=== PATIENT | female | born 1940 | race Caucasian/White ===

== ENCOUNTER 2024-01-09 17:09 | Emergency (ER) | payer MEDICARE, SELFPAY ==
--- NOTE | 2024-01-09 17:14 | ED_ITS ---
HPI - General Adult General Time Seen by Provider: 17:15 Date Seen: 01/09/24 Chief complaint: Cough Stated complaint: chest congestion, cough Time Seen by Provider: 01/09/24 17:14 Source: patient, RN notes reviewed and old records reviewed Mode of arrival: ambulatory Limitations: no limitations History of Present Illness HPI narrative: 83-year-old female with history of high blood pressure presents with cough and congestion. Patient notes she was recently on amoxicillin for sinusitis, and overnight has developed increased cough and some pain when she takes big breath. No shortness of breath. Cough is productive. No lower extremity swelling, no orthopnea. No nausea vomiting, some chills and some diarrhea. Not currently taking anything for symptoms. Related Data Home Medications ?Medication ?Instructions ?Recorded ?Confirmed atorvastatin 40 mg tablet 40 mg PO DAILY 02/15/23 01/09/24 losartan 25 mg tablet 12.5 mg PO DAILY 02/15/23 01/09/24 omeprazole 20 mg capsule,delayed 20 mg PO DAILY 12/17/23 01/09/24 release Previous Rx's ?Medication ?Instructions ?Recorded azithromycin 250 mg tablet 250 mg PO DAILY 4 days #4 tabs 01/02/24 benzonatate 100 mg capsule 100 mg PO TID PRN cough #10 caps 01/09/24 cefpodoxime 200 mg tablet 200 mg PO BID #10 tabs 01/09/24 Allergies Allergy/AdvReac Type Severity Reaction Status Date / Time amoxicillin [From Augmentin] Allergy Unknown Verified 12/17/23 14:25 clavulanic acid Allergy Unknown Verified 12/17/23 14:25 [From Augmentin] Sulfa (Sulfonamide Allergy Unknown Verified 12/17/23 14:25 Antibiotics) [facility] Social History Smoking Status: Never smoker Non-prescribed substance use: denies use Exam Narrative: Exam Narrative: General: Well-developed and well-nourished, no acute distress Head: Atraumatic and normocephalic Eyes: Pupils are equal reactive, extraocular motions intact, conjunctiva clear ENT: External nose and ears are normal, posterior pharynx without erythema or e xudate Neck: No midline cervical tenderness, full spontaneous range of motion the neck, trachea midline, no adenopathy Heart: Regular rate and rhythm no murmurs or thrills Lungs: Bibasilar crackles worse on the left Abdomen: Soft, nontender, nondistended with active bowel sounds Musculoskeletal: No tenderness, deformity, or edema Neurologic: Awake, alert, and oriented x3, no gross focal neurologic deficits, cranial nerves intact as tested Psych: Mood and affect are appropriate Skin: No rashes Const: Vital Signs, click to edit/add: Vital Signs - 24 hr 01/09/24 17:15 Temperature 98 F Pulse Rate [Pulse Oximeter] 90 Respiratory Rate 18 Blood Pressure [Ri ght Upper Arm] 129/76 Pulse Oximetry 95 Oxygen Delivery Me thod Room Air Course Course ED Course: Reviewed prior vascular surgery note from November 23 which was follow-up for endovascular repair of aortic aneurysm on 09/23/2023, was doing well at that time with no further recommendations other than follow-up in 1 year. Patient presents today with cough and congestion, recently on amoxicillin for some sinus congestion. On exam here, patient is finally stable, no acute distress, able to move about the room without difficulty. She does have some mild bibasilar crackles worse on the left. Suspect this could be infectious, however cannot exclude pulmonary edema. Labs and chest x-ray ordered. Will defer advanced hyun ging including CT scan for now. Reevaluation(s) Time of Reevaluation #1: 17:52 Reevaluation #1: Chest x-ray independently interpreted by me demonstrates some streaky Time of Reevaluation #2: 18:18 Reevaluation #2: Labs ordered and independently interpreted by me with leukocytosis, basic panel is reassuring. Time of Reevaluation #3: 18:42 Reevaluation #3: Reviewed radiology interpretation of x-ray which demonstrates some reticular opacities bilaterally consistent with interstitial edema or atypical pneumonia. The patient's clinical presentation is more consistent with atypical pneumonia, however she does have a leukocytosis which may be stress demargination but given x-ray findings and clinical exam, will be started on Omnicef and doxycycline for community-acquired pneumonia. Vital Signs Vital signs: Initial Vital Signs Temperature 98 F 01/09/24 17:15 Temperature Source Temporal Artery Scan 01/09/24 17:15 Pulse Rate 90 01/09/24 17:15 Respiratory Rate 18 01/09/24 17:15 Blood Pressure 129/76 01/09/24 17:15 Blood Pressure Mean 93 01/09/24 17:15 Blood Pressure Position Sitting 01/09/24 17:15 Pulse Oximetry 95 01/09/24 17:15 Oxygen Delivery Method Room Air 01/09/24 17:15 Vital Signs Temperature 98 F 01/09/24 17:15 Pulse Rate 90 01/09/24 17:15 Respiratory Rate 18 01/09/24 17:15 Blood Pressure 129/76 01/09/24 17:15 Pulse Oximetry 95 01/09/24 17:15 Oxygen Delivery Method Room Air 01/09/24 17:15 Temperature 98 F 01/09/24 17:15 Pulse Rate 90 01/09/24 17:15 Respiratory Rate 18 01/09/24 17:15 Blood Pressure 129/76 01/09/24 17:15 Pulse Oximetry 95 01/09/24 17:15 Oxygen Delivery Method Room Air 01/09/24 17:15 Medical Decision Making Lab Data Labs: Lab Results 01/09/24 01/09/24 Range/Units 17:50 17:55 WBC 13.85 H (4.50-11.00) K/uL RBC 3.95 L (4.00-5.20) m/uL Hgb 11.7 L (12.0-16.0) gm/dL Hct 36.1 (33.0-51.0) % MCV 91 (80-100) fL MCH 30 (26-34) pg MCHC 32 (32-36) gm/dL RDW Coeff of Lydia 14.5 (11.5-15.5) % Plt Count 226 (140-440) K/uL Neut % (Auto) 77.3 H (42.0-72.0) % Lymph % (Auto) 11.5 L (20-44) % Wilkes % (Auto) 10.0 (0.0-11.0) % Eos % (Auto) 0.6 (0.0-7.0) % Baso % (Auto) 0.4 (0.0-3.0) % Neut # (Auto) 10.70 H (1.7-7.0) K/uL Lymph # (Auto) 1.60 (0.90-2.90) K/uL Wilkes # (Auto) 1.40 H (0.00-0.90) K/UL Eos # (Auto) 0.10 (0.00-0.50) K/uL Baso # (Auto) 0.10 (0.00-0.30) K/uL Abs Immat Gran (auto) 0.00 (0.00-0.30) K/uL Imm/Tot Granulo (auto) 0.2 % Sodium 134 L (135-149) mmol/L Potassium 3.9 (3.6-5.1) mmol/L Chloride 102 (96-114) mmol/L Carbon Dioxide 23 (20-32) mmol/L Anion Gap 9 (7-15) mEq/L BUN 13 (7-30) mg/dL Creatinine 0.7 (0.5-1.5) mg/dL Estimated Creat Clear 30.62 Estimated GFR 86 ml/min Glucose 116 H (60-115) mg/dL Calcium 9.2 (8.4-10.6) mg/dL NT-Pro-B Natriuret Pep 201 pg/mL SARS-CoV-2 (PCR) Negative SARS-CoV-2 (Negative) Influenza Type A (PCR) Negative PCR FLU A (Negative) Influenza Type B (PCR) Negative PCR FLU B (Negative) RSV (PCR) Negative PCR RSV (Negative) Discharge Plan Discharge Clinical Impression: Atypical pneumonia Patient Disposition: Home, Self-Care Condition: Stable Instructions: Community Acquired Pneumonia (DC) Additional Instructions: Take Tylenol and ibuprofen as needed for fever pain. Take antibiotics as prescribed starting tomorrow. Activity Level: Activity as Tolerated Prescriptions: New azithromycin 250 mg tablet 250 mg PO DAILY 4 Days Qty: 4 0RF cefpodoxime 200 mg tablet 200 mg PO BID Qty: 10 0RF Rx Instructions: must administer with a meal/food benzonatate 100 mg capsule 100 mg PO TID PRN (Reason: cough) Qty: 10 0RF No Action losartan 25 mg tablet 12.5 mg PO DAILY atorvastatin 40 mg tablet 40 mg PO DAILY omeprazole 20 mg capsule,delayed release(DR/EC) 20 mg PO DAILY Follow Up/Referrals: Mayco Purvis MD [Primary Care Provider] - Stand Alone Forms: [employer] Info Instructions
[2024-01-09 17:15] VITALS: BP 129/76; PULSE 90; RESP 18; TEMP 36.6; O2SAT 95; BMI 27.7
--- NOTE | 2024-01-09 17:36 | CRLHL7_ITS ---
For Patients: As a result of the Cures Act, medical imaging exams and procedure reports are released immediately into your electronic medical record. You may view this report before your referring provider. If you have questions, please contact your health care provider. INDICATION: Cough. COMPARISON: None available. TECHNIQUE: 2 views. FINDINGS: Medical Devices: None. Lung Volumes: Adequate inspiration. No significant atelectasis. Lungs: Diffuse bilateral reticular opacities consistent with interstitial edema in the acute setting. Differential diagnostic considerations include atypical (viral) pneumonia. Pleura and Pleural spaces: No significant pleural effusion. No pneumothorax. Mediastinum: Stable. Tortuosity and ectasia of the descending thoracic aorta consistent with atherosclerotic disease, unchanged. Bony Thorax and Soft Tissues: No significant incidental findings. Abdominal aortic endovascular stent graft. Acute kyphotic angulation deformity at the thoracolumbar junction, unchanged. IMPRESSION: Diffuse bilateral reticular opacities consistent with interstitial edema in the acute setting. Differential diagnostic considerations include atypical (viral) pneumonia. Dictated by Willem Frederick MD @ 01/09/2024 6:37:24 PM (Electronically Signed)
--- OUTSIDE RECORDS SUMMARY | 2024-01-09 17:51 | XMS_ITS | Clinical Summary ---
Author Organization [employer] [facility] Address [place], [place] [address] Care Team Providers Care Hatchery Helper Name Role Phone Shmuel Baca MD Unavailable Shantel Holt NP Unavailable Mayco Purvis MD Primary Care Provider Allergies Active Allergy Reactions Criticality Noted Date Comments Amoxicillin-Pot Clavulanate Diarrhea,Vomiting 1 06/08/2016 Sulfa (Sulfonamide Antibiotics) *Unknown - Childhood Rxn 01/14/2017 Medications Medication Sig Dispensed Refills Start Date End Date Status tretinoin 0.025 % gelIndications:Age-r elated facial wrinkles Apply topically to affected area(s) at bedtime. 15 g 09/08/2023 Active diphenhydrAMINE (Benadryl Allergy) 25 mg tablet Take 25 mg by mouth once daily if needed (allergies). Active acetaminophen (Tylenol Extra Strength) 500 mg tablet Take 500 mg by mouth every 6 hours if needed for Pain. Max acetaminophen dose: 4000mg in 24 hrs. Active aspirin chewable 81 mg chewable tabletIndications:S/ P endovascular aneurysm repair Chew 1 Tablet (81 mg) by mouth once daily with a meal. 90 Tablet 09/25/2023 Active WalkerIndications:S/ P endovascular aneurysm repair,Weakness Walker with front wheels for home use. 1 Each 09/24/2023 Active omeprazole 20 mg tabletIndications:Ch ronic GERD Take 1 Tablet (20 mg) by mouth once daily before a meal. 90 Tablet 3 10/18/2023 Active atorvastatin (LIPITOR) 40 mg tabletIndications:Hy perlipidemia, unspecified hyperlipidemia type Take 1 Tablet (40 mg) by mouth at bedtime. 90 Tablet 3 10/18/2023 Active losartan (COZAAR) 25 mg tabletIndications:Va scular malformation Take 0.5 Tablets (12.5 mg) by mouth once daily. 45 Tablet 3 10/18/2023 Active Active Problems Problem Noted Date Diagnosed Date Trigger middle finger of left hand 11/26/2023 S/P endovascular aneurysm repair 09/23/2023 JESS 12/16/2022 AHI- 39 04/06/2023 Intracranial aneurysm 06/25/2021 Abdominal aortic aneurysm (AAA) 03/30/2020 Overview (04/17/2020): 4.3 cm distal aorta incidental finding on CT Aneurysmal subarachnoid hemorrhage 01/15/2017 Vascular malformation; Brain AVM, Embolization . 01/15/2017 Kidney stone Hyperlipidemia GERD (gastroesophageal reflux disease) Benign essential HTN Resolved Problems Problem Noted Date Diagnosed Date Resolved Date Headache(784.0) 01/15/2017 04/17/2020 Tobacco dependence 01/15/2017 0 Subarachnoid hemorrhage 01/14/201709/25 Overview (04/17/2020): AVM. Embolization 01/15. Encounters Date Type Department Care Team Description 11/26/2023 11:45 AM CDT Office Visit [facility] [address] [place] [address] Myron Ballesteros MD Consult (Left 3rd Finger) 11/26/2023 11:15 AM CDT Ancillary Procedure [facility] [address] [facility] [address] 11/26/2023 Orders Only [facility] [address] [place] [address] Calvin Casiano MD <No scans attached> 11/26/2023 Travel 11/24/2023 1:20 PM CDT Office [place] [facility] [address] [place] [address] Calvin Casiano MD CV Vascular Est (late follow up; s/p EVAR 08/2023. CTA scheduled prior//PCP:Mayco Purvis MD/) 11/24/2023 10:40 AM CDT - 11/24/2023 11:59 PM CDT Hospital Encounter [facility] [address] [place] [address] Calvin Casiano MD Infrarenal abdominal aortic aneurysm (AAA) without rupture (HC) 11/24/2023 Travel 11/22/2023 Telephone [facility] [address] [place] [address] Myron Ballesteros MD Appointment (Needs x-rays) 10/25/2023 2:40 PM CDT Phone Office Visit [facility] [address] [facility] [place] [address] Rayshawn Vizcarra MD Covid-19 Positive Result; Sinus Problem; Fatigue; Cough; Headache; Breathing Problem 10/18/2023 2:05 PM CDT Office Visit [facility] [address] [place] [address] Mayco Purvis MD Medicare ANNUAL (subsequent) Visit (83 year old); Derm Problem (Spots on face, itchy skin other places); Hand Pain/problem (Middle finger on left hand locks, started about a month ago); Concerns (Discuss acid reflux); Sleep Problem (Wakes up in the middle of the night, struggles to get back to sleep) 10/18/2023 Travel from Last 3 Months Immunizations Name Administration Dates Next Due COVID-19 VACCINE SPIKEVAX (M ODERNA 50MCG/0.5ML) 12YO+ PFS 10/18/2023 COVID-19 vaccine ([employer]s-Bio NTech 30mcg/0.3mL) 12YO+ BIVALENT PF, MDV 09/04/2022,02/25/2022 COVID-19 vaccine (Pfizer-Bio NTech 30mcg/0.3mL) 12YO+ AJAY-SUCROSE PF, MDV 08/08/2021 COVID-19 vaccine ([employer] NTech 30mcg/0.3mL) PF, MDV 07/23/2020,07/02/2020 Influenza Virus, Unspecified 03/29/2014,03/30/20 12,03/13/2005 Influenza, High-dose Quadriv alent Inactivated 02/28/2020 Influenza, IIV3 (Age >=3 years) 03/29/2014,03/30 Influenza, Inactivated AIIV4 (Age 65+ Years) Preserv Free 01/13/2023,02/25/2022,04/03/2021 Influenza, Inactivated IIV3 (Age 65+ Years) Preserv Free 01/04/2019,03/29/2018 Pneumococcal Conj 20-valent (Prevnar 20) 024 Pneumococcal Poly,23-Valent (Pneumovax) 12/16/19 12 Pneumococcal conj 13-Valent (Prevnar 13) 019 RSV, Recombinant ADJ Reconst ituted (Arexvy 120MCG/0.5mL) 01/26/2023 Td (Age >=7 Years) 05/27/2012,11/16/2009, 004 Td, Preservative Free (age >= 7 Years) 3 Tdap 10/16/2022 Zoster (Shingrix-RZV, recombinant) 07/17/2022, Family History Medical History Relation Name Comments Cancer-colon Father Diabetes Father Cervical cancer Mother Anesthesia Problem No Family History Relation Name Status Comments Father Mother Social History Tobacco Use Types Packs/Day Years Used Date Smoking Tobacco: Former Cigarettes Q uit: 2017 Smokeless Tobacco: Never Tobacco Cessation:Counseling Given: No Alcohol Use Standard Drinks/Week Comments Yes 2 (1 standard drink = 0.6 oz pur e alcohol) PHQ-2 Answer Date Recorded PHQ-2 TOTAL SCORE 0 10/18/2023 Social Connections Answer Date Recorded Frequency of Communication with Friends and Fami ly 0 09/08/2023 Financial Resource Strain Answer Date R ecorded Difficulty of Paying Living Expenses 3 09/08/2023 Difficulty of Paying Living Expenses Not on file 09/08/2023 Food Insecurity Answer Date Recorded Worried About Running Out of Food in the Last Ye ar 1 09/08/2023 Transportation Needs Answer Date Record ed Lack of Transportation (Medical) 1 09/08/2023 Housing Stability Answer Date Recorded Unable to Pay for Housing in the Last Year 1 09/08/2023 Sex and Gender Information Value Date Recorded Sex Assigned at Not on file Gender Identity Not on file Sexual Orientation Not on file Obstetrics History Last Filed Vital Signs Vital Sign Reading Time Taken Comments Blood Pressure 154/98 11/24/2023 1:00 PM CDT Pulse 74 11/24/2023 1:00 PM CDT Temperature 36.5 ??C (97.7 ??F) 10/01/2023 10:53 AM C DT Respiratory Rate 20 09/24/2023 12:00 PM CDT Oxygen Saturation 93% 11/24/2023 1:00 PM CDT Inhaled Oxygen Concentration - - Weight 61.9 kg (136 lb 6.4 oz) 10/18/2023 2:03 P M CDT Height 153.2 cm (5' 0.32) 10/18/2023 2:03 PM CD T Body Mass Index 26.36 10/18/2023 2:03 PM CDT Plan of Treatment Upcoming Encounters Date Type Department Care Team (Late st Contact Info) Description 02/14/2024 1:30 PM CDT Office Visit [facility] [address] [place] [address] Monster Manjarrez MD [address] [place] [address] Health Maintenance Due Date Last Done Comments Influenza for age 65+ 12/26/2023 01/13/2023 , 02/25/2022, 04/03/2021, Additional history exists BMI (ht and wt on same day) for age 18+ 10/17/2024 10/18/2023, 09/08/2023, 07/19/2023, Additional history exists Depression screening for age 12+ 10/17/2024 10/18/2023, 10/15/2022, 06/25/2021, Additional history exists Medicare Wellness for age 65+ 10/18/2024, 10/15/2022, 06/25/2021, Additional history exists Tetanus booster 10/16/2032 10/16/2022, 02/0 04/2012, 05/27/2012, Additional history exists DEXA/DXA scan for age 65+ Completed 07/02/2021 Zoster (shingles) series for age 50+ Completed 07/17/2022, 06/02/2021 Tdap Completed 10/16/2022 RSV vaccine for adults or Completed 01/26/2023 COVID-19 vaccine series Completed 10/18/19, 01/28/2023, 09/04/2022, Additional history exists Pneumococcal series for age 65+ Completed 10/18/2023, 01/04/2019, 12/16/2011 Medical Devices Implanted Type Area Cement Mason Helper Device Identifier Shelf Expiration Date Model / Serial / Lot Stent [id number] Bif Aaa Excluder Comfortable Evar - [id number] Implanted:Qty: 1 on 09/23/2023 by Calvin Casiano MD at [facility] N/A: Aorta [employer] 12/14/2025 [id number] / [id number] / Stent Aaa [id number] Excluder Limb Lower Profile - [id number] Implanted:Qty: 1 on 09/23/2023 by Calvin Casiano MD at [facility] Left: Iliac Artery [employer] 04/28/2026 [id number] / [id number] / Stent Aaa 20x95 Excluder Limb - [id number] Implanted:Qty: 1 on 09/23/2023 by Calvin Casiano MD at [facility] Right: Iliac Artery [employer] 06/01/2026 [id number] / [id number] / Ancr Aortic 3x4.5mm 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 [employer] Aaa - [id number] Implanted:Qty: 9 on 09/23/2023 by Calvin Casiano MD at [facility] N/A: Aorta [employer] SA-85 / / Description:9 CLIPS APPLIED Explanted Type Area Cement Mason Helper Device Identifier Shelf Expiration Date Model / Serial / Lot Cath Guide [id number] Aortic Helifx [employer]pt[employer] Aaa - [id number] Explanted:Qty: 1 on 09/23/2023 at [facility] Right: Iliac Artery [employer] 01/03/2025 SG-64 / / [id number] Procedures Procedure Name Priority Date/Time Associated Diagnosis Comments XR FINGER 3 VIEWS LEFT Routine 11/26/2023 11:16 AM CDT Finger pain, left CT ANGIO ABDOMEN PELVIS - DUAL READ Routine 11/24/2023 11:35 AM CDT Infrarenal abdominal aortic aneurysm (AAA) without rupture (HC) CREATININE,ISTAT Routine 11/24/2023 11:1 4 AM CDT FERRITIN Routine 10/18/2023 3:09 PM CDT Anemia of unknown etiology IRON PLUS IRON BINDING CAP Routine 10/18/2023 3:09 PM CDT Anemia of unknown etiology HEMOGLOBIN Routine 10/18/2023 3:09 PM CDT Anemia of unknown etiology VITAMIN D 25 (DEFICIENCY) Routine 10/18/2023 3:09 PM CDT Vitamin D deficiency BASIC METABOLIC PANEL Routine 10/18/2023 3:09 PM CDT Hyperlipidemia, unspecified hyperlipidemia type LIPID PANEL W REFLEX MEASURED LDL Routine 10/18/2023 3:09 PM CDT Hyperlipidemia, unspecified hyperlipidemia type XR DXA BONE DENSITY 2 SITES AXIAL Routine 07/02/2021 1:35 PM FREELANCE PHOTOGRAPHER Post-menopausal from Last 3 Months or Most Recently Relevant to Health Maintenance Results * XR FINGER 3 VIEWS LEFT (11/26/2023 11:16 AM CDT) Anatomical Region Laterality Modality Finger Computed Radiogr aphy 11/26/2023 2:50 PM CDT Narrative 11/26/2023 2:50 PM CDT For Patients: ??As a result of the Cures Act, medical imaging exams and procedure reports are released immediately into your electronic medical record. ??You may view this report before your referring provider. ??If you have questions, please contact your health care provider. Indication: Left finger pain Technique: Three views left long finger Comparison: None Findings: Osteopenia. Mild spurring at the 3rd MCP joint, proximal interphalangeal joint and distal interphalangeal joint. Severe narrowing and spurring at the 1st carpometacarpal joint with subchondral cystic change. No fracture. Impression: Multifocal degenerative joint disease. Dictated by Jarod Bailey MD @ 11/26/2023 2:50:42 PM (Electronically Signed) Procedure Note Jarod Bailey MD - 11/26/2023 For Patients: As a result of the Cures Act, medical imagingexams and procedure reports are released immediately into your electronicmedical record. You may view this report before your referring provider.If you have questions, please contact your health care provider. Indication: Left finger pain Technique: Three views left long finger Comparison: None Findings: Osteopenia. Mild spurring at the 3rd MCP joint, proximal interphalangealjoint and distal interphalangeal joint. Severe narrowing and spurring atthe 1st carpometacarpal joint with subchondral cystic change. No fracture. Impression: Multifocal degenerative joint disease. Dictated by Jarod Bailey MD @ 11/26/2023 2:50:42 PM (Electronically Signed) Myron Ballesteros MD GENERAL IMAGING * CT ANGIO ABDOMEN PELVIS - DUAL READ (11/24/2023 11:35 AM CDT) Anatomical Region Laterality Modality Abdomen, Pelvis Computed Tomogra phy Impressions 11/26/2023 12:40 PM CDT 1. No acute nonvascular findings in the abdomen and pelvis. 2. Please refer to separately dictated report for evaluation of cardiovascular structures. Please note that all CT scans at this facility use dose modulation, iterative reconstruction, and/or weight-based dosing when appropriate to reduce radiation dose to as low as reasonably achievable. Dictated by Erick Garzon MD @ 11/26/2023 7:54:44 AM (Electronic Signature) Narrative 11/26/2023 12:40 PM CDT STUDY: ABDOMEN AND PELVIS AORTIC AND PELVIC CT ANGIOGRAPHY Study date: 11/24/2023 Indication: 83 year-old woman with endovascular repair of abdominal aortic aneurysm has been referred for evaluation of abdominal aorta and pelvic arterial morphology. STUDY PARAMETERS: Scanner: Siemens Definition Force Contrast: 100 ml of Omnipaque 350 Scan protocol: Nongated high-pitch for noncontrast phase. Nongated high-pitch for arterial phase. Nongated high-pitch for delayed phase. Radiation dose length product: 424 FINAL IMPRESSIONS: Patent aortic endograft from just caudal of the renal artery ostial to bilateral distal common iliac arteries. There is evidence of nonobstructive thrombus within the endograft. Excluded bilobed infrarenal aortic aneurysm measures 54 x 49 mm in maximum cross-section. No evidence of endoleak. Moderate-severe stenosis in the proximal left internal iliac artery. Hiatal hernia. Please see radiology report for nonvascular findings. FINDINGS: Distal descending thoracic aorta: Mildly enlarged with maximum diameters of 31 x 31 mm. Abdominal aorta: Suprarenal aorta is ectatic without overt aneurysm. Patent endograft begins just caudal of the renal artery ostia, and graft legs end in bilateral common iliac arteries. There is nonobstructive thrombus within the endograft. Residual bilobed aneurysm runs along the entire infrarenal aorta with maximum cross-sectional diameters of 54 x 49 mm. Abdominal aorta branch arteries: Celiac artery: Patent. Nonobstructive atherosclerosis in splenic artery. Superior mesenteric artery: Patent. Right renal artery: Nonobstructive atherosclerosis. Left renal artery: Nonobstructive atherosclerosis. Inferior mesenteric artery: Arises from aneurysm with poor contrast in the proximal artery. Pelvic arteries (RIGHT): Common iliac artery: Patent and spanned by patent endograft leg. Internal iliac artery: Nonobstructive atherosclerosis. External iliac artery: Nonobstructive atherosclerosis. Common femoral artery: Nonobstructive atherosclerosis. Pelvic arteries (LEFT): Common iliac artery: Patent and spanned by patent graft leg. Internal iliac artery: Moderate-severe proximal stenosis. External iliac artery: Nonobstructive atherosclerosis. Common femoral artery: Nonobstructive atherosclerosis. Other findings: Hiatal hernia FOR PATIENT: Results are automatically released to your [email or web address] account once available, in compliance with federal regulations. ?? This means that you may see your results before your provider has had a chance to review them. ??Please allow 2-3 business days for your provider to comment on the results. Chace Tompkins MD 11/24/2023 For Patients: As a result of the 21st Century Cures Act, medical imaging exams and procedure reports are released immediately into your electronic medical record. ??You may view this report before your referring provider. ?? If you have questions, please contact your health care provider. OVER-READ ??OVER-READ ??OVER-READ OVER-READ: DETAILED RADIOLOGY EXTRACARDIAC OVER-READ OF CARDIAC CT 11/24/2023 TECHNIQUE: ??Please see cardiology report for technical information. ??100 cc Omnipaque-350 intravenous contrast. ?? This exam is being performed in conjunction with the services provided by the [facility] ([facility]). CLINICAL HISTORY: ??Abdominal aortic aneurysm status post repair. Cardiac over-read. FINDINGS: ?? Lower Chest: Mild bibasilar dependent atelectatic changes. No focal airspace opacities or pleural effusions. Abdomen/Pelvis: Liver: Noncirrhotic morphology. Stable inferior right hepatic lobe cyst. Gallbladder: Absent. Spleen: Unremarkable. Adrenal glands: Unremarkable. Kidneys: Enhance symmetrically without hydronephrosis. Nonobstructing 6 MM left renal calculus. Pancreas: Unremarkable. Lymph nodes: No retroperitoneal, mesenteric, inguinal, or pelvic adenopathy by CT criteria. Bowel: Moderate hiatal hernia. No bowel obstruction. Colonic diverticulosis. Urinary bladder: Limited evaluation due to underdistention. No gross pathology. Reproductive structures: Unremarkable for patient`s age. No abdominal/pelvis ascites or free intraperitoneal air. Musculoskeletal: Visualized osseous structures demonstrate diffuse degenerative changes. Calvin Casiano MD CT * (ABNORMAL) CREATININE,ISTAT (11/24/2023 11:14 AM CDT) CREATININE, POCT 0.80 0.57 - 1.11 mg/dL 11/24/2023 3:19 PM CDT [facility] Comment:Caution: Patients ta mayelin Hydroxyurea have falsely increased iStat Creatinine results. Verify creatinine results ordering a Creatinine (19773.2) eGFR 73(L) >90 mL/min/1.7 3m2 11/24/2023 3:19 PM CDT [facility] Comment:As of 2021, eG FR is calculated by the CKD-EPI creatinine equation without race adjustment. eGFR can be influenced by muscle mass, exercise, and diet. The reported eGFR is an estimation only and is only applicable if the renal function is stable. Blood BLOOD SPECIMEN / Unknown 11/24/2023 11:14 AM CDT 11/24/2023 3:19 PM CDT Calvin Casiano MD CHEMISTRY [facility] [address] [place] [address], * LIPID PANEL W REFLEX MEASURED LDL (10/18/2023 3:09 PM CDT) [facility] CHOLESTEROL,TOTAL 176 100 - 199 mg/dL 10/19/2023 5:02 AM CDT [facility] Comment: Cholesterol, Total Reference Ranges Desirable <200 mg/dL Borderline 200-239 mg/dL High >=240 mg/dL TRIGLYCERIDES 112 <150 mg/dL 10/19/2023 5:02 AM CDT [facility] HDL CHOLESTEROL 54 >40 mg/dL 5:02 AM CDT [facility] NON-HDL CHOLESTEROL 122 <145 mg/dl 10/19/2023 5:02 AM CDT [facility] CHOL/HDL RATIO 3.26 <4.50 10/19/2023 5:02 AM CDT [facility] LDL CHOLESTEROL 100 <=130 mg/dL 10/19/2023 5:02 AM CDT [facility] VLDL CHOLESTEROL 22 <=30 mg/dL 10/19/2023 5:02 AM CDT [facility] PROVIDER ORDERED STATUS RANDOM 10/19/2023 5:02 AM CDT [facility] Blood BLOOD SPECIMEN / Unknown Venipuncture / Unknown 10/18/2023 3:09 PM CDT 10/18/2023 3:10 PM CDT Mayco Purvis MD CHEMISTRY [facility] [address] [place] [address], * (ABNORMAL) VITAMIN D 25 (DEFICIENCY) (10/18/2023 3:09 PM CDT) Pathologist [facility] VITAMIN D TOTAL 14.9(L) 20.0 - 80.0 ng/mL 10/19/2023 5:02 AM CDT [facility] Blood BLOOD SPECIMEN / Unknown Venipuncture / Unknown 10/18/2023 3:09 PM CDT 10/18/2023 3:10 PM CDT Narrative [facility] - 10/19/2023 5:02 AM CDT ? Vitamin D Status Deficiency: ? <20 ng/mL Insufficiency: ?20-29 ng/mL Sufficiency: ?30-80 ng/mL Possible Toxicity: ??>80 ng/mL Based on [facility] recommendations Biotin supplements may cause clinically significant interference for this test assay. ??If interference is suspected, it is strongly recommended that biotin is discontinued for at least one week prior to retesting. Mayco Purvis MD SEND OUTS [facility] [address] [place] [address], * IRON PLUS IRON BINDING CAP (10/18/2023 3:09 PM CDT) Pathologist [facility] IRON 65 37 - 145 ug/dL 10/19/2023 5:02 AM CDT [facility] UIBC (UNSATURATED) 287 112 - 347 ug/dL 10/19/2023 5:02 AM CDT [facility] IRON BINDING CAPACITY 352 250 - 400 ug/dL 10/19/2023 5:02 AM CDT [facility] IRON,% SATURATION 18 14 - 50 % 10/19/2023 5:02 AM CDT [facility] Blood BLOOD SPECIMEN / Unknown Venipuncture / Unknown 10/18/2023 3:09 PM CDT 10/18/2023 3:10 PM CDT Mayco Purvis MD CHEMISTRY Performing Organization Address City/[facility]/ZIP Co de Phone Number [facility] [address] [place] [address], [place] * (ABNORMAL) HEMOGLOBIN (10/18/2023 3:09 PM CDT) HEMOGLOBIN 11.5(L) 12.0 - 16.0 g/dL 10/18/2023 3:21 PM CDT [facility] MCV 93 80 - 100 fL 10/18/2023 3:21 PM CDT [facility] Blood BLOOD SPECIMEN / Unknown Venipuncture / Unknown 10/18/2023 3:09 PM CDT 10/18/2023 3:10 PM CDT Mayco Purvis MD HEMATOLOGY Performing Organization Address City/[facility]/ZIP Co de Phone Number [facility] [address] [place] [address], * FERRITIN (10/18/2023 3:09 PM CDT) Pathologist [facility] FERRITIN 54.0 15.0 - 150.0 ng/mL 10/19/2023 5:02 AM CDT [facility] Blood BLOOD SPECIMEN / Unknown Venipuncture / Unknown 10/18/2023 3:09 PM CDT 10/18/2023 3:10 PM CDT Mayco Purvis MD [facility] [address] [place] [id number], [place] * (ABNORMAL) BASIC METABOLIC PANEL (10/18/2023 3:09 PM CDT) Pathologist [facility] SODIUM 138 136 - 145 mmol/L 10/19/2023 5:02 AM CDT [facility] POTASSIUM 4.2 3.5 - 5.1 mmol/L 10/19/2023 5:02 AM CDT [facility] CHLORIDE 105 98 - 107 mmol/L 10/19/2023 5:02 AM [facility] CO2,TOTAL 20(L) 22 - 29 mmol/L 10/19/2023 5:02 AM [facility] ANION GAP 13 5 - 18 10/19/2023 5:02 AM [facility] GLUCOSE 95 70 - 99 mg/dL 10/19/2023 5:02 AM [facility] CALCIUM 9.6 8.8 - 10.2 mg/dL 10/19/2023 5:02 AM [facility] BUN 16 8 - 23 mg/dL 10/19/2023 5:02 AM [facility] CREATININE 0.70 0.50 - 0.90 mg/dL 10/19/2023 5:02 AM [facility] BUN/CREAT RATIO 23(H) 10 - 20 5:02 AM [facility] eGFR 86(L) >90 mL/min/1.7 3m2 10/19/2023 5:02 AM [facility] Comment:As of 2021, eG FR is calculated by the CKD-EPI creatinine equation without race adjustment. ??eGFR can be influenced by muscle mass, exercise, and diet. ??The reported eGFR is an estimation only and is only applicable if the renal function is stable. Blood BLOOD SPECIMEN / Unknown Venipuncture / Unknown 10/18/2023 3:09 PM CDT 10/18/2023 3:10 PM T Mayco Purvis MD CHEMISTRY [facility] [address] [place] [address], * (ABNORMAL) XR DXA BONE DENSITY 2 SITES AXIAL (07/02/2021 1:35 PM FREELANCE PHOTOGRAPHER) Anatomical Region Laterality Modality Spine, HIPS, HIPL, HIPR Other Impressions 07/07/2021 2:56 PM CDT Osteopenia. RECOMMENDATIONS: The National Osteoporosis Foundation recommends pharmacologic treatment for patients with T-scores of -2.5 or less, patients with prior history of fragility fractures, or patients with 10-year probability of greater than 3% at hips or greater than 20% of suffering major osteoporotic fractures. Recommend continued optimization of calcium and vitamin D intake through dietary means and/or supplementation and regular exercise. Consider pharmacologic therapy for osteopenia with increased fracture risk. Follow-up bone density reading in 2 years if therapy initiated to assess therapeutic efficacy. Fernanda Olsen PA-C Narrative 07/07/2021 2:56 PM CDT For Patients: Results are automatically released to your [email or web address] ([employer]) account once available, in compliance with federal regulations. This means that you may see your results before your provider has had a chance to review them. Please allow 2-3 business days for your provider to comment on the results. XR DXA Bone Mineral Density (BMD) EXAM LOCATION: [address] [address] PATIENT NAME: Jasmyn Tolentino DATE OF : 1940 EXAM DATE: 07/02/2021 REQUESTING PROVIDER: Mayco Purvis MD GENDER AT : female HEIGHT: 5' 1 (06/25/2021) WEIGHT: ??138 lb 3.2 oz (06/25/2021) MENOPAUSAL STATUS: Postmenopausal RACE/ETHNICITY: White RISK FACTORS: Advanced Age, Smoking (prior) and White Race CURRENT MEDICATION FOR BONE LOSS: NONE INDICATION: Screening for osteoporosis COMPARISON DATE(S): None DXA scans are compared to prior studies for a patient only when the two (or more) studies were performed on the same scanner. It is not possible to compare data generated on one scanner to data from another because there are not standards in DXA equipment. This applies even if the two scanners are made by the same media relations coordinator. PROCEDURE: Dual-energy x-ray absorptiometry performed with routine technique. Reporting is completed in the form of a T-score. The T-score represents the standard deviation from peak bone mass based on young healthy adult. A Z-score is used for diagnosis in premenopausal women, and for men under the age of 50. FINDINGS: RESULT LUMBAR SPINE L1-L4(L2) BMD: 1.313 g/cm2 T-Score: + 1.0 Z-Score: + 3.0 RESULTS FEMUR Left femoral neck BMD: 0.702 g/cm2 T-Score: - 2.4 Z-Score: - 0.2 Right femoral neck BMD: 0.781 g/cm2 T-Score: - 1.9 Z-Score: + 0.4 Left hip BMD: 0.835 g/cm2 T-Score: - 1.4 Z-Score: + 0.7 Right hip BMD: 0.927 g/cm2 T-Score: - 0.6 Z-Score: + 1.5 WHO criteria: Normal: T-score at or above -1 SD Osteopenia: T-score between -1.1 and -2.4 SD Osteoporosis: T-score at or below -2.5 SD FRAX RISK CALCULATION (USED FOR OSTEOPENIA ONLY): 10-year probability of major osteoporotic fracture: 19.0%. 10-year probability of hip fracture: 6.6%. 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
[2024-01-09 17:56] LABS: Basophils Percent Auto 0.4 % (0.0-3.0); Eosinophils Percent Auto 0.6 % (0.0-7.0); Hematocrit 36.1 % (33.0-51.0); Hemoglobin* 11.7 gm/dL (12.0-16.0); Immature Granulocytes Pct Auto 0.2 %; Lymphocytes Percent Auto 11.5 % (20-44); Mean Corpuscular HGB Conc 32 gm/dL (32-36); Mean Corpuscular Hemoglobin 30 pg (26-34); Mean Corpuscular Volume 91 fL (80-100); Neutrophils Percent Auto 77.3 % (42.0-72.0); Platelet Count* 226 K/uL (140-440); RDW Coefficient of Variation % 14.5 % (11.5-15.5); Red Blood Count 3.95 m/uL (4.00-5.20); White Blood Count* 13.85 K/uL (4.50-11.00)
[2024-01-09 18:09] LABS: Chloride* 102 mmol/L (96-114)
[2024-01-09 18:10] LABS: Potassium* 3.9 mmol/L (3.6-5.1); Slide Review Reflex No; Sodium* 134 mmol/L (135-149)
[2024-01-09 18:12] LABS: Anion Gap 9 mEq/L (7-15); Carbon Dioxide* 23 mmol/L (20-32); Creatinine* 0.7 mg/dL (0.5-1.5); Est. Creatinine Clearance* 30.62; Estimated Glomerular Filt Rate 86 ml/min
[2024-01-09 18:13] LABS: Blood Urea Nitrogen* 13 mg/dL (7-30); Calcium* 9.2 mg/dL (8.4-10.6); Glucose* 116 mg/dL (60-115)
[2024-01-09 18:23] LABS: NT Pro B Type NatriureticPept* 201 pg/mL
[2024-01-09 18:49] LABS: PCR FLU A Negative PCR FLU A (Negative); PCR FLU B Negative PCR FLU B (Negative); PCR RSV Negative PCR RSV (Negative); SARS PCR* Negative SARS-CoV-2 (Negative)
[2024-01-09] MEDS: CEFPODOXIME PROXETIL 200 MG TABLET PO (19:32)
[2024-01-09] MEDS: AZITHROMYCIN 250 MG TABLET 500 MG PO (19:32)
== END 2024-01-09 19:43 | disposition home or self-care (01) ==
PROVIDERS: Emergency Provider Family Medicine; PCP Family Medicine
DX: J18.8 Other pneumonia, unspecified organism (principal)
CPT/HCPCS: 36415; 71046; 80048; 83880; 85025; 87631; 99284; A9270

== ENCOUNTER 2024-03-21 11:09 | Emergency (ER) | payer MEDICARE, SELFPAY ==
[2024-03-21 11:23] VITALS: BP 179/96; PULSE 79; RESP 16; TEMP 36.3; O2SAT 95; BMI 27.3
--- OUTSIDE RECORDS SUMMARY | 2024-03-21 12:27 | XMS_ITS | Clinical Summary ---
Author Organization [facility] Address [place], [place] [address] Care Team Providers Care Application Technician Name Role Phone Shmuel Baca MD Unavailable [...] Encounters Date Type Department Care Team Description 01/21/2024 11:30 AM CDT Ancillary Procedure [facility] [address] [facility] [address] 01/21/2024 9:30 AM CDT Ancillary Procedure [facility] [address] [facility] [address] 01/21/2024 9:00 AM CDT Office Visit [facility] [address] [place] [address] Yarelis Altamirano MD Pneumonia (recheck. Chest feels hallow ) 01/21/2024 Travel 01/09/[address] [facility] Scanner 1 scan: (1-Ord) [place], XR CHEST 2V, 01/09/2024 from Last 3 Months Immunizations Name Administration Dates Next Due COVID-19 VACCINE SPIKEVAX (M ODERNA 50MCG/0.5ML) 12YO+ PFS 10/18/2023 COVID-19 vaccine (Pfizer-Bio NTech 30mcg/0.3mL) 12YO+ BIVALENT PF, MDV 09/04/2022,02/25/2022 COVID-19 vaccine (Pfizer-Bio NTech 30mcg/0.3mL) 12YO+ AJAY-SUCROSE PF, MDV 08/08/2021 COVID-19 vaccine (Pfizer-Bio NTech 30mcg/0.3mL) PF, MDV 07/23/2020,07/02/2020 Influenza Virus, [...] 0 10/18/2023 Social Connections Answer Date Recorded Do you often feel lonely or isolated from those around you? 0 09/23/2023 Financial Resource Strain Answer Date R ecorded Difficulty of Paying Living Expenses 3 09/08/2023 Difficulty of Paying Living Expenses Not on file 09/08/2023 Food Insecurity Answer Date Recorded Do you worry your food will run out before you are able to buy more? 1 09/23/2023 Transportation Needs Answer Date Record ed Does lack of transportation keep you from medica l appointments? 1 09/23/2023 Does lack of transportation keep you from work, meetings or getting things that you need? 1 09/23/2023 Housing Stability Answer Date Recorded What is your housing situation today? 1 09/23/2023 Sex and Gender Information Value Date Recorded Sex Assigned at Not on file Gender Identity Not on file Sexual Orientation Not on file Obstetrics History Last Filed Vital Signs Vital Sign Reading Time Taken Comments Blood Pressure 128/82 01/21/2024 8:57 AM CDT Pulse 80 01/21/2024 8:57 AM CDT Temperature 36.5 C (97.7 F) 10/01/2023 10:53 AM CDT Respiratory Rate 20 09/24/2023 12:00 PM CDT Oxygen Saturation 95% 01/21/2024 8:57 AM CDT Inhaled Oxygen Concentration - - Weight 61.9 kg (136 lb 6.4 oz) 10/18/2023 2:03 P M CDT Height 153.2 cm (5' 0.32) 10/18/2023 2:03 PM CD T Body Mass Index 26.36 10/18/2023 2:03 PM CDT Plan of Treatment Health Maintenance Due Date Last Done Comments COVID-19 vaccine series ( season) 2023 10/18/2023, 01/28/2023, 09/04/2022, Additional history exists Influenza for age 65+ 12/26/2023 01/13/2023 , 02/25/2022, 04/03/2021, Additional history exists BMI (ht and wt on same day) for age 18+ 10/17/2024 10/18/2023, 09/08/2023, 07/19/2023, Additional history exists Depression screening for age 12+ 10/17/2024 10/18/2023, 10/15/2022, 06/25/2021, Additional history exists Medicare Wellness for age 65+ 10/18/2024, 10/15/2022, 06/25/2021, Additional history exists Tetanus booster 10/16/2032 10/16/2022, 04/2012, 05/27/2012, Additional history exists DEXA/DXA scan for age 65+ Completed 07/02/2021 Zoster (shingles) series for age 50+ Completed 07/17/2022, 06/02/2021 Tdap Completed 10/16/2022 RSV vaccine for adults or Completed 01/26/2023 Pneumococcal series for age 65+ Completed 10/18/2023, 01/04/2019, 12/16/2011 Medical Devices Implanted Type Area Shower Screen Installer Device Identifier Shelf Expiration Date Model / Serial / Lot Stent [id number] Bif Aaa Excluder Comfortable Evar - [id number] Implanted:Qty: 1 on 09/23/2023 by Calvin Casiano MD at [facility] N/A: Aorta [employer] 12/14/2025 [id number] / [id number] / Stent Aaa [id number] Excluder Limb Lower Profile - [id number] Implanted:Qty: 1 on 09/23/2023 by Calvin Casiano MD at [facility] Left: Iliac Artery [employer] 04/28/2026 [id number] / [id number] / Stent Aaa 20x95 Excluder Limb - [id number] Implanted:Qty: 1 on 09/23/2023 by Calvin Casiano MD at [facility] Right: Iliac Artery [employer] 06/01/2026 [id number] / [id number] / Ancr Aortic 3x4.5mm Helifx W/Anesthesia Assistant Aptus Aaa - [id number] Implanted:Qty: 9 on 09/23/2023 by Calvin Casiano MD at [facility] N/A: Aorta [employer] SA-85 / / Description:9 CLIPS APPLIED Explanted Type Area Shower Screen Installer Device Identifier Shelf Expiration Date Model / Serial / Lot Cath Guide [id number] Aortic Helifx Aptus Aaa - [id number] Explanted:Qty: 1 on 09/23/2023 at [facility] Right: Iliac Artery [employer] 01/03/2025 SG-64 / / [id number] Procedures Procedure Name Priority Date/Time Associated Diagnosis Comments CT CHEST WO VENAKTESH 01/21/2024 10:53 AM CDT History of recent pneumonia Cough, unspecified type XR CHEST 2 VIEWS PA AND LATERAL Routine 01/21/2024 9:39 AM CDT History of recent pneumonia CBC WITH AUTO DIFFERENTIAL Routine 01/21/2024 9:24 AM CDT PROCALCITONIN Routine 01/21/2024 9:24 AM CDT History of recent pneumonia SCAN-RADIOLOGY REPORT 01/09/2024 12:00 AM CDT XR DXA BONE DENSITY 2 SITES AXIAL Routine 07/02/2021 1:35 PM 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 Bibasilar atelectasis/scarring. Otherwise no acute infiltrates. 2. Incidental findings as above, similar to prior. Please note that all CT scans at this facility use dose modulation, iterative reconstruction, and/or weight-based dosing when appropriate to reduce radiation dose to as low as reasonably achievable. Dictated by Davis Garcia MD @ 01/22/2024 2:57:46 AM (Electronically Signed) Narrative 01/22/2024 2:57 AM CDT For Patients: As a result of the Cures Act, medical imaging exams and procedure reports are released immediately into your electronic medical record. You may view this report before your referring provider. If you have questions, please contact your health care provider. INDICATION: History of recent pneumonia. TECHNIQUE: CT chest without contrast. COMPARISON: Chest radiographs 01/21/2024. CTA chest, abdomen, and pelvis 12/16/2020. FINDINGS: Lungs and pleura: Bibasilar atelectasis/scarring. Otherwise no acute infiltrates. No suspicious nodules. No pleural effusions, pleural thickening, or pneumothorax. Heart and vasculature: Heart size is normal. Thoracic aorta and pulmonary artery are normal in caliber. Aortic and coronary artery calcifications. Lymph nodes/mediastinum: No mediastinal, hilar, or axillary adenopathy. Thyroid gland is unremarkable. Chest wall: No masses. Upper abdomen: Moderate hiatal hernia. Status post cholecystectomy. Colonic diverticulosis. 6 mm left renal calculus. Bones: Degenerative changes. Procedure Note Davis Garcia MD - 01/22/2024 For Patients: As a result of the Cures Act, medical imagingexams and procedure reports are released immediately into your electronicmedical record. You may view this report before your referring provider.If you have questions, please contact your health care provider. INDICATION: History of recent pneumonia. TECHNIQUE: CT chest without contrast. COMPARISON: Chest radiographs 01/21/2024. CTA chest, abdomen, and pelvis 12/16/2020. FINDINGS: Lungs and pleura: Bibasilar atelectasis/scarring. Otherwise no acuteinfiltrates. No suspicious nodules. No pleural effusions, pleuralthickening, or pneumothorax. Heart and vasculature: Heart size is normal. Thoracic aorta and pulmonaryartery are normal in caliber. Aortic and coronary artery calcifications. Lymph nodes/mediastinum: No mediastinal, hilar, or axillary adenopathy.Thyroid gland is unremarkable. Chest wall: No masses. Upper abdomen: Moderate hiatal hernia. Status post cholecystectomy.Colonic diverticulosis. 6 mm left renal calculus. Bones: Degenerative changes. IMPRESSION: 1. Bibasilar atelectasis/scarring. Otherwise no acute infiltrates. 2. Incidental findings as above, similar to prior. Please note that all CT scans at this facility use dose modulation,iterative reconstruction, and/or weight-based dosing when appropriate toreduce radiation dose to as low as reasonably achievable. Dictated by Davis Garcia MD @ 01/22/2024 2:57:46 AM (Electronically Signed) Yarelis Altamirano MD CT * XR CHEST 2 VIEWS PA AND LATERAL (01/21/2024 9:39 AM CDT) Anatomical Region Laterality Modality CHEST, THORAX, Lung, HEART Compu faith Radiography 01/21/2024 1:51 PM CDT Impressions 01/21/2024 1:51 PM CDT 1. Mild patchy airspace opacities are present within the lateral lung bases. These findings can be seen with atelectasis and/or pneumonia. Dictated by Nikita Godfrey MD @ 01/21/2024 1:51:13 PM Dictated by: Nikita Godfrey MD @ 01/21/2024 13:51:18 (Electronically Signed) Narrative 01/21/2024 1:51 PM CDT For Patients: As a result of the Cures Act, medical imaging exams and procedure reports are released immediately into your electronic medical record. You may view this report before your referring provider. If you have questions, please contact your health care provider. INDICATION: History of recent pneumonia TECHNIQUE: Chest radiograph 2 views COMPARISON: 01/17/2017 FINDINGS: Mediastinum: Small sliding type gastric hiatal hernia (type IV) is present. The heart silhouette is normal in size and morphology. Lung: Mild patchy airspace opacities are present within the lateral lung bases. No sign of pleural effusion seen. No pneumothorax is identified. Bone and Soft tissue: Unremarkable for age. Procedure Note Nikita Godfrey MD - 01/21/2024 For Patients: As a result of the Cures Act, medical imagingexams and procedure reports are released immediately into your electronicmedical record. You may view this report before your referring provider.If you have questions, please contact your health care provider. INDICATION: History of recent pneumonia TECHNIQUE: Chest radiograph 2 views COMPARISON: 01/17/2017 FINDINGS: Mediastinum: Small sliding type gastric hiatal hernia (type IV) ispresent. The heart silhouette is normal in size and morphology. Lung: Mild patchy airspace opacities are present within the lateral lungbases. No sign of pleural effusion seen. No pneumothorax is identified. Bone and Soft tissue: Unremarkable for age. IMPRESSION: 1. Mild patchy airspace opacities are present within the lateral lungbases. These findings can be seen with atelectasis and/or pneumonia. Dictated by Nikita Godfrey MD @ 01/21/2024 1:51:13 PM Dictated by: Nikita Godfrey MD @ 01/21/2024 13:51:18 (Electronically Signed) Yarelis Altamirano MD GENERAL IM AGING * (ABNORMAL) CBC WITH AUTO DIFFERENTIAL (01/21/2024 9:24 AM CDT) WHITE BLOOD CELL COUNT 11.0(H) 3.8 - 10.8 Thousand/u L [facility] RED BLOOD CELL COUNT 4.10 3.80 - 5.10 Million/uL [facility] HEMOGLOBIN 12.1 11.7 - 15.5 g/dL [facility] HEMATOCRIT 38.6 35.0 - 45.0 % [facility] MCV 94.1 80.0 - 100.0 fL [facility] MCH 29.5 27.0 - 33.0 pg [facility] MCHC 31.3(L) 32.0 - 36.0 g/dL [facility] RDW 13.0 11.0 - 15.0 % [facility] PLATELET COUNT 407(H) 140 - 400 Thousand/u L [facility] MPV 9.0 7.5 - 12.5 fL [facility] ABSOLUTE NEUTROPHILS 7,139 1,500 - 7,800 cells/uL [facility] ABSOLUTE LYMPHOCYTES 2,530 850 - 3,900 cells/uL [facility] ABSOLUTE MONOCYTES 979(H) 200 - 950 cells/uL [facility] ABSOLUTE EOSINOPHILS 220 15 - 500 cells/uL [facility] ABSOLUTE BASOPHILS 132 0 - 200 cells/uL [facility] NEUTROPHILS 64.9 % [facility] LYMPHOCYTES 23.0 % [facility] MONOCYTES 8.9 % [facility] EOSINOPHILS 2.0 % [facility] BASOPHILS 1.2 % [facility] 01/21/2024 9:24 AM CDT 01/21/2024 9:24 AM CDT Yarelis Altamirano MD HEMATOLOGY [facility] [address] [place] [address], [facility] [address] [place] [address] * PROCALCITONIN (01/21/2024 9:24 AM CDT) PROCALCITONIN <0.10 <0.10 ng/mL [facility], Comment: Interpretation Guidelines Diagnosis of systemic bacterial infection/sepsis <0.50 ng/mL: Low risk for sepsis: local bacterial infection possible >=0.50 to <2.00 ng/mL: Sepsis is possible; other conditions possible >=2.00 to <10.00 ng/mL: Sepsis likely >10.00 ng/mL: Severe bacterial sepsis or septic shock probable Diagnosis of lower respiratory tract infections: <0.10 ng/mL: Bacterial infection very unlikely >=0.10 to <0.25 ng/mL: Bacterial infection unlikely >=0.25 to <0.50 ng/mL: Bacterial infection likely >=0.50 ng/mL: Bacterial infection very likely Procalcitonin levels should be evaluated in context of all laboratory findings and the total clinical status of the patient. For additional information, please refer to http://education.[employer]/faq/FAQ46 (This link is being provided for informational/educational purposes only.) Blood BLOOD SPECIMEN / Unknown 01/21/2024 9:24 AM CDT 01/21/2024 9:24 AM CDT Yarelis Altamirano MD SEND OUTS [facility] [address] [place] [address], [facility] [place], [address] [place] [address] * SCAN-RADIOLOGY REPORT (01/09/2024 12:00 AM CDT) Anatomical Region Laterality Modality Other Scanner OTHER * (ABNORMAL) XR DXA BONE DENSITY 2 SITES AXIAL (07/02/2021 1:35 PM C D STILL OPERATOR) Anatomical Region Laterality Modality Spine, HIPS, HIPL, [...] Patients: Results are automatically released to your [employer] account once available, in compliance with federal regulations. This means that you may see your results before your provider has had a chance to review them. Please allow 2-3 business days for your provider to comment on the results. XR DXA Bone Mineral Density (BMD) EXAM LOCATION: [address] [address] PATIENT NAME: Jasmyn Tolentino DATE OF : 1940 EXAM DATE: 07/02/2021 REQUESTING PROVIDER: Mayco Purvis MD GENDER AT : female HEIGHT: 5' 1 (06/25/2021) WEIGHT: 138 lb 3.2 oz (06/25/2021) MENOPAUSAL STATUS: Postmenopausal [...] two scanners are made by the same cement worker. 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 * Full Code (Latest Code Status on File) Date Activated Date Inactivated Comments 09/24/2023 11:20 AM 09/24/2023 6:29 PM Question Answer Comments Code Status Discussion: Reviewed Preferences * Full Code Date Activated Date Inactivated Comments 01/14/2017 6:00 PM 01/27/2017 6:11 PM Question Answer Comments Code Status Discussion: Per Existing Order Care Teams Application Technician Relationship Specialty Start Date End Date Mayco Purvis MD [address] [place] [address] PCP - General Family Practice 12/12/18 Shmuel Baca MD [address] [place] [address] [place] [address] [address] Radiology - Neuroradiology 03/31/17 Shantel Holt NP [address] [place] [address] [address] Nurse Practitioner 03/31/17
--- NOTE | 2024-03-21 13:27 | ED.GENADULT ---
HPI - General Adult General Date Seen: 03/21/24 Chief complaint: Back Injury/Pain Stated complaint: Sciatica Time Seen by Provider: 03/21/24 11:46 Source: patient Mode of arrival: ambulatory Limitations: no limitations History of Present Illness HPI narrative: Patient is a delightful 83-year-old woman who has been having problems with sciatic type pain in her left leg for couple of days. She says that she thinks she set this off a couple of weeks ago when she was lifting a space heater out of her car when she brought it to donate. She felt a little twinge then in its tweaked a couple of times since then but the past couple of days she has had radiating pain down the back of her leg and has had difficulty getting comfortable. She has been able to walk although sometimes it is painful. She denies other trauma. She has not had any fevers, unexpected weight loss, weakness, numbness bowel or bladder changes. She says that [facility] , had to sit in the car for 20 minutes or so and found it was hard to even get out of the car because it was bothering her so much. She is supposed to be on an airplane tomorrow to go to [place] [facility]. She has had symptoms like this in the past although it has been awhile. Related Data Home Medications ?Medication ?Instructions ?Recorded ?Confirmed atorvastatin 40 mg tablet 40 mg PO DAILY 02/15/23 03/21/24 losartan 25 mg tablet 12.5 mg PO DAILY 02/15/23 03/21/24 omeprazole 20 mg capsule,delayed 20 mg PO DAILY 12/17/23 03/21/24 release Previous Rx's ?Medication ?Instructions ?Recorded benzonatate 100 mg capsule 100 mg PO TID PRN cough #10 caps 01/09/24 cefpodoxime 200 mg tablet 200 mg PO BID #10 tabs 01/09/24 ondansetron 4 mg disintegrating 4 mg PO Q8H PRN nausea and 03/21/24 tablet vomiting #7 tabs oxycodone 5 mg capsule 5 mg PO TID PRN pain #7 caps 03/21/24 oxycodone 5 mg tablet 5 mg PO Q8H PRN pain #7 tabs 03/21/24 prednisone 20 mg tablet See Rx Instructions .Route 03/21/24 .COMPLEX #18 tabs Allergies Allergy/AdvReac Type Severity Reaction Status Date / Time amoxicillin (From Augmentin) Allergy Unknown Verified 12/17/23 14:25 clavulanic acid (From Allergy Unknown Verified 12/17/23 14:25 Augmentin) Sulfa (Sulfonamide Allergy Unknown Verified 12/17/23 14:25 Antibiotics) Review of Systems Status of ROS: Reports: 6 or more systems reviewed and unremarkable except as noted in History and below PFSH PFS Social History Smoking Status: Never smoker How often do you have a drink containing alcohol: 2-3 times a week AUDIT-C Alcohol total score: 3 Non-prescribed substance use: denies use Exam Narrative: Exam Narrative: Vital signs reviewed In general, alert, nontoxic woman. She is seated comfortably in a chair. Back: Nontender to palpation of aside from a little bit of tenderness over the left sciatic notch. Extremities: Well perfused, no edema. Neurologic: She has 5 of 5 strength in bilateral lower extremities. Sensation is intact to light touch. She walks independently without difficulty. Skin: Warm dry well perfused. Const: Vital Signs, click to edit/add: Vital Signs - 24 hr 03/21/24 11:23 Temperature 97.3 F L Pulse Rate [Pulse Oximeter] 79 Respiratory Rate 16 Blood Pressure [Ri ght Upper Arm] 179/96 H Pulse Oximetry 95 Oxygen Delivery Me thod Room Air Documenting provider has reviewed patient's vital signs: yes Course Course ED Course: Overall symptoms are consistent with sciatica, no red flags to suggest that she needs immediate imaging. Did discuss with her she does not improve with conservative measures that imaging in the form of MRI may be indicated in the future. For today, will try her on a prednisone taper, I have given her oxycodone, 7 tablets and advised that she try half tablet 1st and if that does not work she can take a full tablet. She does have some trouble with nausea with narcotics are prescribed Zofran as well. For significant worsening, new symptoms such as fever, weakness, bowel bladder changes etcetera, she should be seen more urgently. Otherwise primary care follow-up next week on return from her trip if not improving. Vital Signs Vital signs: Initial Vital Signs Temperature 97.3 F L 03/21/24 11:23 Temperature Source Temporal Artery Scan 03/21/24 11:23 Pulse Rate 79 03/21/24 11:23 Respiratory Rate 16 03/21/24 11:23 Blood Pressure 179/96 H 03/21/24 11:23 Blood Pressure Mean 123 H 03/21/24 11:23 Blood Pressure Position Sitting 03/21/24 11:23 Pulse Oximetry 95 03/21/24 11:23 Oxygen Delivery Method Room Air 03/21/24 11:23 Vital Signs Temperature 97.3 F L 03/21/24 11:23 Pulse Rate 79 03/21/24 11:23 Respiratory Rate 16 03/21/24 11:23 Blood Pressure 179/96 H 03/21/24 11:23 Pulse Oximetry 95 03/21/24 11:23 Oxygen Delivery Method Room Air 03/21/24 11:23 Temperature 97.3 F L 03/21/24 11:23 Pulse Rate 79 03/21/24 11:23 Respiratory Rate 16 03/21/24 11:23 Blood Pressure 179/96 H 03/21/24 11:23 Pulse Oximetry 95 03/21/24 11:23 Oxygen Delivery Method Room Air 03/21/24 11:23 Discharge Plan Discharge Clinical Impression: Sciatica Patient Disposition: Home, Self-Care Condition: Stable Instructions: Sciatica (ED) Additional Instructions: You can take Tylenol, 1000 mg 3 times daily for baseline pain. Ice or heat may be helpful as well. Prednisone taper as prescribed. Oxycodone if needed for uncontrolled pain, half to 1 tablet. Zofran if needed for nausea. If you are not improving over the next few days with conservative measures, please follow-up with your regular doctor next week to be seen for re-evaluation. Return any time for acute worsening, severe uncontrolled pain, weakness, fevers or other acute changes. Prescriptions: New oxycodone 5 mg capsule 5 mg PO TID PRN (Reason: pain) Qty: 7 0RF prednisone 20 mg tablet See Rx Instructions .ROUTE .COMPLEX Qty: 18 0RF Rx Instructions: 20 mg orally ;Three tabs daily for 3 days, then 2 tabs daily for 3 days, then 1 tab daily for 3 days. oxycodone 5 mg tablet 5 mg PO Q8H PRN (Reason: pain) Qty: 7 0RF ondansetron 4 mg tablet,disintegrating 4 mg PO Q8H PRN (Reason: nausea and vomiting) Qty: 7 0RF No Action losartan 25 mg tablet 12.5 mg PO DAILY atorvastatin 40 mg tablet 40 mg PO DAILY omeprazole 20 mg capsule,delayed release(DR/EC) 20 mg PO DAILY cefpodoxime 200 mg tablet 200 mg PO BID Qty: 10 0RF Rx Instructions: must administer with a meal/food benzonatate 100 mg capsule 100 mg PO TID PRN (Reason: cough) Qty: 10 0RF Follow Up/Referrals: Mayco Purvis MD [Primary Care Provider] - Stand Alone Forms: [employer] Info Instructions
== END 2024-03-21 12:40 | disposition home or self-care (01) ==
LOC: ED 12:26
PROVIDERS: Emergency Provider Emergency Medicine; PCP Family Medicine
DX: M54.32 Sciatica, left side (principal)
CPT/HCPCS: 99282; 99283; 99284

== ENCOUNTER 2024-03-27 13:17 | Emergency (ER) | payer MEDICARE, SELFPAY ==
[2024-03-27 13:20] VITALS: BP 147/90; PULSE 90; RESP 18; TEMP 37; O2SAT 94; BMI 27.3
--- NOTE | 2024-03-27 13:29 | ED.BACK ---
HPI - Back Pain/Injury General Time Seen by Provider: 13:31 Date Seen: 03/27/24 Chief Complaint: Back Injury/Pain Stated Complaint: sciatic pain Time Seen by Provider: 03/27/24 13:29 Source: patient and RN notes reviewed Mode of arrival: ambulatory Limitations: no limitations History of Present Illness HPI Narrative: This 83-year-old female is referred back to the ER by her clinic with ongoing back pain. She was seen on the 21 of March here, was given a steroid taper, some oxycodone. She notes that she can get about 4 hours asleep lying in bed. Sometimes she can walk the pain off in the hallway but mostly she is just having ongoing right low back pain radiating down to her knee, sometimes it feels like the knee hurts. She had this remotely once before. She believes she was lifting a small heater and taking it donate, this initiated her back symptoms. She still has control of her bowels and bladder but does note constipation having to use the oxycodone. She did not initiate any MiraLax or senna yet. She has no numbness or tingling, prednisone just does not seem to be making this go away yet. She is on Tylenol baseline. She feels like she still has normal motor capacity of her lower extremity. Her primary care provider cannot get her in until April 06. She feels best laying down with ice but then is difficult to get back up. Related Data Home Medications ?Medication ?Instructions ?Recorded ?Confirmed atorvastatin 40 mg tablet 40 mg PO DAILY 02/15/23 03/21/24 losartan 25 mg tablet 12.5 mg PO DAILY 02/15/23 03/21/24 omeprazole 20 mg capsule,delayed 20 mg PO DAILY 12/17/23 03/21/24 release Previous Rx's ?Medication ?Instructions ?Recorded benzonatate 100 mg capsule 100 mg PO TID PRN cough #10 caps 01/09/24 cefpodoxime 200 mg tablet 200 mg PO BID #10 tabs 01/09/24 ondansetron 4 mg disintegrating 4 mg PO Q8H PRN nausea and 03/21/24 tablet vomiting #7 tabs oxycodone 5 mg capsule 5 mg PO TID PRN pain #7 caps 03/21/24 oxycodone 5 mg tablet 5 mg PO Q8H PRN pain #7 tabs 03/21/24 prednisone 20 mg tablet See Rx Instructions .Route 03/21/24 .COMPLEX #18 tabs oxycodone 5 mg tablet 5 mg PO Q6H PRN pain #20 tabs 03/27/24 tizanidine 2 mg tablet 2 mg PO TID PRN muscle spasticity 03/27/24 #30 tabs Allergies Allergy/AdvReac Type Severity Reaction Status Date / Time amoxicillin (From Augmentin) Allergy Unknown Verified 12/17/23 14:25 clavulanic acid (From Allergy Unknown Verified 12/17/23 14:25 Augmentin) Sulfa (Sulfonamide Allergy Unknown Verified 12/17/23 14:25 Antibiotics) Review of Systems Status of ROS: Reports: 6 or more systems reviewed and unremarkable except as noted in History and below [facility] Social History Smoking Status: Never smoker How often do you have a drink containing alcohol: 2-3 times a week AUDIT-C Alcohol total score: 3 Non-prescribed substance use: denies use Exam Const: Vital Signs, click to edit/add: Vital Signs - 24 hr 03/27/24 13:20 Temperature 98.6 F Pulse Rate [Pulse Oximeter] 90 Respiratory Rate 18 Blood Pressure [Ri ght Upper Arm] 147/90 H Pulse Oximetry 94 Oxygen Delivery Me thod Room Air 83-year-old female that is alert, interactive, no apparent distress. She is sitting in the chair in exam room 3, declines getting onto the bed. Her lower extremities have no pitting edema. She has good symmetrical peripheral pulses in the feet, skin is warm. She has normal light touch sensation of both lower extremities including toes and feet. Strength is 5/5 and symmetric throughout toes, ankle with Aguirre and plantar flexion, full knee extension and flexion resisted strength. She does have pain attempting to get up out of the chair but is able to do so. No midline tenderness of her back. She has sciatic notch tenderness definitely on her left side, nothing significant on the right. She has bilateral positive straight leg raising with left back symptoms. Documenting provider has reviewed patient's vital signs: yes Course Course ED Course: She does not have red flag symptoms other than unresponsive treatment with no improvement in current symptoms. Discussed with her imaging at this time. There is a possibility that this could be age related compression fracture. Will see if the MRI is available, if it isn't will proceed with CT imaging. Patient is agreeable to that. Did talk to MRI, his 1:45 p.m. patient just canceled in he will be able to get Jovana in for imaging. She agrees to proceed with this. I do think this is the most reasonable wait a proceed to get definitive answers for her and make a plan for care. Reevaluation(s) Time of Reevaluation #1: 15:38 Reevaluation #1: Have reviewed MRI findings with Jovana. She does go to [facility], possibly could get in with Dr. Cristina to be assessed for injection. Will add in a muscle relaxant but at this time there is nothing really more that I can do for her outside of pain management. She does need another prescription for oxycodone as she is out. The aortic aneurysm was partially visualized, she has had an abdominal aortic aneurysm repair prior. She is having no abdominal symptoms at this time, doubt leak or malfunction of a prior repair at this time. Vital Signs Vital signs: Initial Vital Signs Temperature 98.6 F 03/27/24 13:20 Temperature Source Temporal Artery Scan 03/27/24 13:20 Pulse Rate 90 03/27/24 13:20 Respiratory Rate 18 03/27/24 13:20 Blood Pressure 147/90 H 03/27/24 13:20 Blood Pressure Mean 109 H 03/27/24 13:20 Blood Pressure Position Sitting 03/27/24 13:20 Pulse Oximetry 94 03/27/24 13:20 Oxygen Delivery Method Room Air 03/27/24 13:20 Vital Signs Temperature 98.6 F 03/27/24 13:20 Pulse Rate 90 03/27/24 13:20 Respiratory Rate 18 03/27/24 13:20 Blood Pressure 147/90 H 03/27/24 13:20 Pulse Oximetry 94 03/27/24 13:20 Oxygen Delivery Method Room Air 03/27/24 13:20 Temperature 98.6 F 03/27/24 13:20 Pulse Rate 90 03/27/24 13:20 Respiratory Rate 18 03/27/24 13:20 Blood Pressure 147/90 H 03/27/24 13:20 Pulse Oximetry 94 03/27/24 13:20 Oxygen Delivery Method Room Air 03/27/24 13:20 MDM - Back Pain/Injury Imaging Data MR - Other: Attestation: I have reviewed the pertinent imaging results. Radiologist's impression: Patient: JOVANA RAMÍREZ Facility:?[facility] Patient ID:?[id number] Site Patient ID:?[id number]. Site :?[id number] Study:?MRI-Spine Lumbar W/O-03/27/2024 3:02:17 PM Ordering Physician:Yvon Heath Final Report: Indication: Left sciatica. Technique: Multiplanar, multisequence MRI of the lumbar spine was performed without intravenous contrast. Comparison: None relevant available. Findings: There are 5 lumbar type vertebral segments identified. The vertebral body heights are maintained without evidence of fracture. There is no discrete T1 hypointense marrow infiltrating process. Mild levoconvex curvature. The conus medullaris terminates at T12-L1, normal. Cauda equina appears unremarkable. T12-L1: Disc degeneration. Minimal disc bulge without spinal canal or neural foraminal narrowing. L1-2: Disc degeneration of posterior endplate fatty marrow change (Modic type 2) trace degenerative anterolisthesis. Minimal spinal canal narrowing. Moderate right and mild left neural foraminal narrowing. Mild facet arthropathy. L2-3: Disc degeneration with mild opposing endplate degenerative marrow edema (Modic type 1). Trace degenerative retrolisthesis. Disc bulge with facet arthropathy results in mild spinal canal narrowing. Moderate right and mild left neural foraminal narrowing. L3-4: Disc degeneration. Disc bulge combined with facet arthropathy results in mild spinal canal narrowing. Mild neural foraminal narrowing. Mild facet arthropathy. L4-5: Disc degeneration. Disc bulge with facet arthropathy results in mild spinal canal narrowing. Moderate left and mild right neural foraminal narrowing. Moderate facet arthropathy. L5-S1: Grade 1 anterolisthesis. Severe left and moderate right lateral recess stenosis with encroachment upon the descending S1 nerves. Moderate neural foraminal narrowing. Severe facet arthropathy. Moderate sacroiliac joint osteoarthritis. Partially visualized abdominal aortic aneurysm. The extent of aneurism is unable to be assessed given saturation band obscuring measurement. Impression: 1. At L5-S1, grade 1 anterolisthesis with severe left and moderate right lateral recess stenosis, encroaching upon the descending S1 nerves. 2. At L4-5, mild spinal canal with moderate left and mild right neural foraminal narrowing. 3. At L1-2, moderate right and mild left neural foraminal narrowing. 4. Moderate to severe multilevel facet arthropathy. 5. Partially visualized abdominal aortic aneurysm. Correlate with any prior abdominal/pelvic imaging. Dictated by Avery Zurita MD @ 03/27/2024 3:09:13 PM (Electronic Signature) Discharge Plan Discharge Clinical Impression: Lumbar radiculopathy Patient Disposition: Home, Self-Care Condition: Stable Instructions: Lumbar Radiculopathy (ED) Additional Instructions: Please call your clinic in see if you can get in with Dr. Cristina julianne to get assessed for possible steroid epidural injection. Continue with the steroids that you are on, I will refill your oxycodone at this time. Will add in a muscle relaxant to try. Continue with Tylenol 1000 mg 3 times a day baseline for pain. Need to have clinic refer you to physical therapy, ask them to do so. Take your copy of your MRI to your primary care provider as well as to Dr. Cristina. Start the senna, start with 1 pill twice a day for the next 1-2 days, if still constipated can increase to 2 pills twice a day for 1-2 days. If that is not enough, add in MiraLax 17 g daily. If there are any warning findings as outlined in the handout, please seek re-evaluation. Activity Level: Activity as Tolerated Prescriptions: New tizanidine 2 mg tablet 2 mg PO TID PRN (Reason: muscle spasticity) Qty: 30 0RF oxycodone 5 mg tablet 5 mg PO Q6H PRN (Reason: pain) Qty: 20 0RF No Action losartan 25 mg tablet 12.5 mg PO DAILY atorvastatin 40 mg tablet 40 mg PO DAILY omeprazole 20 mg capsule,delayed release(DR/EC) 20 mg PO DAILY cefpodoxime 200 mg tablet 200 mg PO BID Qty: 10 0RF Rx Instructions: must administer with a meal/food benzonatate 100 mg capsule 100 mg PO TID PRN (Reason: cough) Qty: 10 0RF oxycodone 5 mg capsule 5 mg PO TID PRN (Reason: pain) Qty: 7 0RF prednisone 20 mg tablet See Rx Instructions .ROUTE .COMPLEX Qty: 18 0RF Rx Instructions: 20 mg orally ;Three tabs daily for 3 days, then 2 tabs daily for 3 days, then 1 tab daily for 3 days. oxycodone 5 mg tablet 5 mg PO Q8H PRN (Reason: pain) Qty: 7 0RF ondansetron 4 mg tablet,disintegrating 4 mg PO Q8H PRN (Reason: nausea and vomiting) Qty: 7 0RF Follow Up/Referrals: Mayco Purvis MD [Primary Care Provider] - Stand Alone Forms: [employer] Info Instructions
--- NOTE | 2024-03-27 13:47 | CRLHL7_ITS ---
For Patients: As a result of the 21st Century Cures Act, medical imaging exams and procedure reports are released immediately into your electronic medical record. You may view this report before your referring provider. If you have questions, please contact your health care provider. Indication: Left sciatica. Technique: Multiplanar, multisequence MRI of the lumbar spine was performed without intravenous contrast. Comparison: None relevant available. Findings: There are 5 lumbar type vertebral segments identified. The vertebral body heights are maintained without evidence of fracture. There is no discrete T1 hypointense marrow infiltrating process. Mild levoconvex curvature. The conus medullaris terminates at T12-L1, normal. Cauda equina appears unremarkable. T12-L1: Disc degeneration. Minimal disc bulge without spinal canal or neural foraminal narrowing. L1-2: Disc degeneration of posterior endplate fatty marrow change (Modic type 2) trace degenerative anterolisthesis. Minimal spinal canal narrowing. Moderate right and mild left neural foraminal narrowing. Mild facet arthropathy. L2-3: Disc degeneration with mild opposing endplate degenerative marrow edema (Modic type 1). Trace degenerative retrolisthesis. Disc bulge with facet arthropathy results in mild spinal canal narrowing. Moderate right and mild left neural foraminal narrowing. L3-4: Disc degeneration. Disc bulge combined with facet arthropathy results in mild spinal canal narrowing. Mild neural foraminal narrowing. Mild facet arthropathy. L4-5: Disc degeneration. Disc bulge with facet arthropathy results in mild spinal canal narrowing. Moderate left and mild right neural foraminal narrowing. Moderate facet arthropathy. L5-S1: Grade 1 anterolisthesis. Severe left and moderate right lateral recess stenosis with encroachment upon the descending S1 nerves. Moderate neural foraminal narrowing. Severe facet arthropathy. Moderate sacroiliac joint osteoarthritis. Partially visualized abdominal aortic aneurysm. The extent of aneurism is unable to be assessed given saturation band obscuring measurement. Impression: 1. At L5-S1, grade 1 anterolisthesis with severe left and moderate right lateral recess stenosis, encroaching upon the descending S1 nerves. 2. At L4-5, mild spinal canal with moderate left and mild right neural foraminal narrowing. 3. At L1-2, moderate right and mild left neural foraminal narrowing. 4. Moderate to severe multilevel facet arthropathy. 5. Partially visualized abdominal aortic aneurysm. Correlate with any prior abdominal/pelvic imaging. Dictated by Avery Zurita MD @ 03/27/2024 3:09:13 PM (Electronically Signed)
--- OUTSIDE RECORDS SUMMARY | 2024-03-27 13:47 | XMS_ITS | Clinical Summary ---
Author Organization [facility] Address [place], [place] [address] Care Team Providers Care Lodging Facilities Attendant Name Role Phone Shmuel Baca MD Unavailable [...] Encounters Date Type Department Care Team Description 03/27/2024 Nurse Triage [facility] [address] [place] [address] Mayco Purvis MD Back Pain 01/21/2024 11:30 AM CDT Ancillary Procedure [facility] [address] [place] [address] 01/21/2024 9:30 AM CDT Ancillary Procedure [facility] [address] [place] [address] 01/21/2024 9:00 AM CDT Office Visit [facility] [address] [place] [address] Yarelis Altamirano MD Pneumonia (recheck. Chest feels hallow ) 01/21/2024 Travel 01/09/2024 Orders Only [facility] Scanner 1 scan: (1-Ord) [...] Years) 3 Tdap 10/16/2022 Zoster (Shingrix-RZV, recombinant) 07/17/2022,02 /10/2021 Family History Medical History Relation Name Comments [...] Care Team (Late st Contact Info) Description 04/06/2024 2:[address] JUDGE Office Visit [facility] [address] [place] [address] Mayco Purvis MD [address] [place] [address] Health Maintenance Due Date Last Done Comments COVID-19 vaccine series (2023- season) 2023 10/18/2023, 01/28/2023, 09/04/2022, Additional history [...] 01/04/2019, 12/16/2011 Medical Devices Implanted Type Area Property Coordinator Device Identifier Shelf Expiration Date Model / Serial / Lot Stent [id number] Bif Aaa Excluder Comfortable Evar - [id number] Implanted:Qty: 1 on 09/23/2023 by Calvin Casiano MD at [facility] N/A: Aorta [employer] 12/14/2025 [id number] / [id number] / Stent Aaa [id number] Excluder Limb Lower Profile - [id number] Implanted:Qty: 1 on 09/23/2023 by Calvin Casiano MD at [facility] Left: Iliac Artery [employer] 04/28/2026 [id number] / [id number] / Stent Aaa 20x95 Excluder Limb - [id number] Implanted:Qty: 1 on 09/23/2023 by Calvin Casiano MD at [facility] Right: Iliac Artery [employer] 06/01/2026 [id number] / [id number] / Ancr Aortic 3x4.5mm Helifx W/Olive Pitter Aptus Aaa - [id number] Implanted:Qty: 9 on 09/23/2023 by Calvin Casiano MD at [facility] N/A: Aorta [employer] SA-85 / / Description:9 CLIPS APPLIED Explanted Type Area Property Coordinator Device Identifier Shelf Expiration Date Model / Serial / Lot Cath Guide [id number] Aortic Helifx Aptus Aaa - [id number] Explanted:Qty: 1 on 09/23/2023 at [facility] Right: Iliac Artery [employer] 01/03/2025 SG-64 / / [id number] Procedures Procedure Name Priority Date/Time Associated Diagnosis Comments CT CHEST WO VENKATESH 01/21/2024 10:53 AM CDT History of recent pneumonia Cough, unspecified type XR CHEST 2 VIEWS PA AND LATERAL Routine 01/21/2024 9:39 AM CDT History of recent pneumonia CBC WITH AUTO DIFFERENTIAL Routine 01/21/2024 9:24 AM CDT PROCALCITONIN Routine 01/21/2024 9:24 AM CDT History of recent pneumonia SCAN-RADIOLOGY REPORT 01/09/2024 12:00 AM CDT XR DXA BONE DENSITY 2 SITES AXIAL Routine 07/02/2021 1:[address] JUDGE Post-menopausal from Last 3 Months or Most [...] For Patients: As a result of the Century Cures Act, medical imaging exams and [...] CDT Yarelis Altamirano MD [facility] [address] [place] [address], [facility] [address] [place] [address] * PROCALCITONIN (01/21/2024 9:24 AM CDT) PROCALCITONIN <0.10 <0.10 ng/mL [facility], Comment: Interpretation Guidelines Diagnosis of systemic bacterial [...] patient. For additional information, please refer to http://education.COADE/faq/FAQ46 (This link is being provided for informational/educational purposes only.) Blood BLOOD SPECIMEN / Unknown 01/21/2024 9:24 AM CDT 01/21/2024 9:24 AM CDT Yarelis Altamirano MD S[facility] [employer] [employer] [address] [place] [address], [employer] [facility], [address] [place] [address] * SCAN-RADIOLOGY REPORT (01/09/2024 12:00 AM CDT) Anatomical Region Laterality Modality Other Scanner OTHER * (ABNORMAL) XR DXA BONE DENSITY 2 SITES AXIAL (07/02/2021 1:[address] JUDGE) Anatomical Region Laterality Modality Spine, HIPS, HIPL, [...] Patients: Results are automatically released to your [employer] account once available, in compliance with federal regulations. This means that you may see your results before your provider has had a chance to review them. Please allow 2-3 business days for your provider to comment on the results. XR DXA Bone Mineral Density (BMD) EXAM LOCATION: [facility] [address] [facility] [address] PATIENT NAME: Jasmyn Tolentino DATE OF : [...] two scanners are made by the same forestry patrolman. 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 [address] [place] [address] Radiology - Neuroradiology 03/31/17 Shantel Holt NP [address] [place] [address] [facility] [address] [place] [address] Nurse Practitioner 03/31/17
== END 2024-03-27 16:01 | disposition home or self-care (01) ==
PROVIDERS: Emergency Provider Family Medicine; PCP Family Medicine
DX: M54.16 Radiculopathy, lumbar region (principal)
CPT/HCPCS: 72148; 99284

== ENCOUNTER 2024-09-16 20:11 | Outpatient (CLI) | payer MEDICARE, SELFPAY | END 2024-09-16 20:12 | disposition home or self-care (01) | LOC: AMB 09-18 13:05 | PROVIDERS: PCP Family Medicine; Visit Provider Family Medicine | DX: R20.2 Paresthesia of skin (principal) | CPT/HCPCS: A0998 ==

== ENCOUNTER 2025-02-16 16:59 | Emergency (ER) | payer MEDICARE, SELFPAY ==
--- OUTSIDE RECORDS SUMMARY | 2025-02-16 17:01 | XMS_ITS | Clinical Summary ---
Author Organization [facility] Address [address] [place] [address] Care Team Providers Care Commercial Parts Professional Name Role Phone Shmuel Baca MD Unavailable Shantel Holt NP Unavailable Mayco Purvis MD Primary Care Provider Allergies Active Allergy Reactions Criticality Noted Date Comments Amoxicillin-Pot Clavulanate Diarrhea,Vomiting 1 06/08/2016 Sulfa (Sulfonamide Antibiotics) *Unknown - Childhood Rxn 01/14/2017 Medications diphenhydrAMINE (Benadryl Allergy) 25 mg tablet Take 25 mg by mouth once daily if needed (allergies). Active acetaminophen (Tylenol Extra Strength) 500 mg tablet Take 500 mg by mouth every 6 hours if needed for Pain. Max acetaminophen dose: 4000mg in 24 hrs. Active WalkerIndications :S/P endovascular aneurysm repair,Weakness Walker with front wheels for home use. 1 Each 09/24/19 24 Active fluticasone (50 mcg per actuation) nasal solution (FLONASE)Indicati ons:Chronic allergic rhinitis Inhale 2 Sprays in both nostrils once daily. 16 g 3 02/01/20 25 Active losartan (COZAAR) 25 mg tabletIndications :Vascular malformation (HC) Take 1 Tablet (25 mg) by mouth once daily. 90 Tablet 3 02/01/20 25 Active omeprazole (PRILOSEC) 20 mg Delayed-Release capsuleIndication s:Gastroesophagea l reflux disease without esophagitis Take 1 Capsule (20 mg) by mouth once daily before a meal. 90 Capsule 3 02/01/20 25 Active atorvastatin (LIPITOR) 80 mg tabletIndications :Hyperlipidemia, unspecified hyperlipidemia type Take 1 Tablet (80 mg) by mouth at bedtime. 90 Tablet 3 02/02/20 25 Active losartan (COZAAR) 25 mg tabletIndications :Vascular malformation (HC) TAKE ONE-HALF TABLET BY MOUTH ONCE EVERY DAY 45 Tablet 01/04/20 025 Discontin ued(Reord er (E-cancel not sent)) omeprazole (PRILOSEC) 20 mg Delayed-Release capsule Take 20 mg by mouth once daily before a meal. 01/02/20 025 Discontin ued(Reord er (E-cancel not sent)) atorvastatin (LIPITOR) 40 mg tablet Take 40 mg by mouth at bedtime. 01/02/20 025 Discontin ued(Reord er (E-cancel not sent)) atorvastatin (LIPITOR) 40 mg tabletIndications :Hyperlipidemia, unspecified hyperlipidemia type Take 1 Tablet (40 mg) by mouth at bedtime. 90 Tablet 3 02/01/20 025 Discontin ued(Reord er (E-cancel not sent)) Active Problems Problem Noted Date Diagnosed Date [...] Encounters Date Type Department Care Team Description 02/06/2025 Telephone [facility] [address] [place] [address] Kelechi Singh LICSW Follow Up 02/05/2025 10:30 AM CDT Office Visit [facility] [address] [place] [address] Kelechi Singh [employer] Visit 02/05/2025 Telephone [facility] [address] [place] [address] Kelechi Singh LICSW Referral (PSYCHOLOGY); Follow Up 02/05/2025 Travel 01/31/2025 10:05 AM CDT Office Visit [facility] [address] [place] [address] Mayco Purvis MD Medication Management; Sinus Problem (Post nasal drip, on and off, Claritin helps); Concerns (Acid reflux, constipation, diarrhea); Referral (Psychologist ) 01/31/2025 Travel 01/01/2025 Refill [facility] [address] [place] [address] Mayco Purvis MD Refill Request (Losartan) 12/20/2024 1:20 PM CDT Office Visit [facility] [address] [place] [address] Calvin Casiano MD CV Vascular Est (1 year follow up; Infrarenal abdominal aortic aneurysm (AAA) 12/20/2024 10:45 AM CDT - 12/20/2024 11:59 PM CDT Hospital Encounter [facility] [address] [place] [address] Calvin Casiano MD Infrarenal abdominal aortic aneurysm (AAA) without rupture 12/20/2024 Travel 12/14/2024 Refill [facility] [address] [place] [address] Mayco Purvis MD Refill Request (Atorvastatin, Omeprazole) from Last 3 Months Immunizations Immunization Administration Dates Next Due COVID-19 VACCINE MNEXSPIKE ( MODERNA 10MCG/0.2ML) 12YO+ PFS 01/24/2025 COVID-19 VACCINE SPIKEVAX (M ODERNA 50MCG/0.5ML) 12YO+ PFS 10/18/2023 COVID-19 vaccine (Retewi-Bio NTech 30mcg/0.3mL) 12YO+ BIVALENT PF, MDV 09/04/2022,02/25/2022 COVID-19 vaccine (Pfizer-Bio NTech 30mcg/0.3mL) 12YO+ AJAY-SUCROSE PF, MDV 08/08/2021 COVID-19 vaccine (Pfizer-Bio NTech 30mcg/0.3mL) PF, MDV 07/23/2020,07/02/2020 Influenza Virus, Unspecified 03/29/2014,03/30/20 12,03/13/2005 Influenza, High-dose Quadriv alent Inactivated 02/28/2020 Influenza, IIV3 (Age >=3 years) 03/29/2014,03/30 Influenza, Inactivated AIIV4 (Age 65+ Years) Preserv Free 01/13/2023,02/25/2022,04/03/2021 Influenza, Inactivated IIV3 (Age 65+ Years) Preserv Free 12/27/2024,03/03/2024,01/04/2019,03/29 Pneumococcal Conj 20-valent (Prevnar 20) 10/18/2023 Pneumococcal Poly,23-Valent (Pneumovax) 12/16/2011 Pneumococcal conj 13-Valent (Prevnar 13) 01/04/2019 RSV, Recombinant ADJ Reconst ituted (Arexvy 120MCG/0.5mL) 01/26/2023 Td (Age >=7 Years) 05/27/2012,11/16/2009, 004 Td, Preservative Free (age >= 7 Years) 3 Tdap 10/16/2022 Tuberculin Skin Test, Unspecified 02/11/2017,08/2016 Zoster (Shingrix-RZV, recombinant) 07/17/2022, Family History Medical [...] Answer Date Recorded PHQ-2 TOTAL SCORE 0 01/31/2025 Social Connections Answer Date Recorded Do you often feel lonely or isolated from those around you? 0 01/31/2025 Alcohol Use Answer Date Recorded How often do you have a drink containing alcohol ? 3 01/31/2025 How many drinks containing a lcohol do you have on a typical day when you are drinking? 0 01/31/2025 How often do you have five or more drinks on one occasion? 0 01/31/2025 Financial Resource Strain Answer Date R ecorded Difficulty of Paying Living Expenses 3 01/31/2025 Difficulty of Paying Living Expenses Not on file 01/31/2025 Food Insecurity Answer Date Recorded Do you worry your food will run out before you are able to buy more? 1 01/31/2025 Transportation Needs Answer Date Record ed Does lack of transportation keep you from medica l appointments? 1 01/31/2025 Does lack of transportation keep you from work, meetings or getting things that you need? 1 01/31/2025 Housing Stability Answer Date Recorded What is your housing situation today? 2 01/31/2025 Interpersonal Safety Answer Date Record ed Are you being hit, kicked, p ushed or yelled at (see row info)? Unable to assess, family/SO in room. 09/23/2023 Interpersonal Safety Abuse 12 - 18 Not on file 09/23/2023 Interpersonal Safety Ambulat ory Vulnerability Not on file 09/23/2023 Utilities Answer Date Recorded Do you have trouble paying f or utilities (for example, heat, electricity, water, phone)? 1 01/31/2025 Comments No Sex and Gender Information Value Date Recorded Sex Assigned at Not on file Legal Sex Female 7:57 AM SOFTBALL COACH Gender Identity Not on file Sexual Orientation Not on file Obstetrics History Last Filed Vital Signs Vital Sign Reading Time Taken Comments Blood Pressure 152/78 01/31/2025 10:25 AM CDT Pulse 77 01/31/2025 10:03 AM CDT Temperature 36.2 C (97.1 F) 05/10/2024 2:34 PM SOFTBALL COACH Respiratory Rate 16 12/20/2024 1:09 PM CDT Oxygen Saturation 95% 01/31/2025 10:03 AM CDT Inhaled Oxygen Concentration - - Weight 62.3 kg (137 lb 6.4 oz) 01/31/2025 10:03 AM CDT Height 150.8 cm (4' 11.37) 01/31/2025 10:03 AM CDT Body Mass Index 27.41 01/31/2025 10:03 AM CDT Plan of Treatment Upcoming Encounters Date Type Department Care Team (Late st Contact Info) Description 04/02/2025 1:00 PM SOFTBALL COACH Office Visit [facility] [address] [place] [address] Kimberlee Del Real, PhD, LP [address] [place] [address] Health Maintenance Due Date Last Done Comments Medicare Wellness for age 65+ 10/18/2024 10/18/2023, 10/15/2022, 06/25/2021, Additional history exists BMI (ht and wt on same day) for age 18+ 01/31/2026 01/31/2025, 10/18/2023, 09/08/2023, Additional history exists Depression screening for age 12+ 01/31/2026 01/31/2025, 10/18/2023, 10/15/2022, Additional history exists Tetanus booster 10/16/2032 10/16/2022, 02/04/2012, 05/27/2012, Additional history exists DEXA/DXA scan for age 65+ Completed 07/02/2021 Zoster (shingles) series for age 50+ Completed 07/17/2022, 06/02/2021 RSV vaccine for adults or Completed 01/26/2023 Pneumococcal series for age 50+ Completed 10/18/2023, 01/04/2019, 12/16/2011 Influenza Vaccine Completed 12/27/2024, , 01/13/2023, Additional history exists Hepatitis B series for 19+ Aged Out N o longer eligible based on patient's age to complete this topic Medical Devices Implanted Type Area Supervisor Offset Plate Preparation Device Identifier Shelf Expiration Date Model / Serial / Lot Stent [id number] Bif Aaa Excluder Comfortable Evar - [id number] Implanted:Qty: 1 on 09/23/2023 by Calvin Casiano MD at [facility] N/A: Aorta W [place] 12/14/2025 [id number] / [id number] / Stent Aaa [id number] Excluder Limb Lower Profile - [id number] Implanted:Qty: 1 on 09/23/2023 by Calvin Casiano MD at [facility] Left: Iliac Artery W L [place] 04/28/2026 [id number] / [id number] / Stent Aaa 20x95 Excluder Limb - [id number] Implanted:Qty: 1 on 09/23/2023 by Calvin Casiano MD at [facility] Right: Iliac Artery W L [place] 06/01/2026 [id number] / [id number] / Ancr Aortic 3x4.5mm Helifx W/Weatherization Installer Aptus Aaa - [id number] Implanted:Qty: 9 on 09/23/2023 by Calvin Casiano MD at [facility] N/A: Aorta Medtronic SA-85 / / Description:9 CLIPS APPLIED Explanted Type Area Supervisor Offset Plate Preparation Device Identifier Shelf Expiration Date Model / Serial / Lot Cath Guide [id number] Aortic Helifx Aptus Aaa - [id number] Explanted:Qty: 1 on 09/23/2023 at [facility] Right: Iliac Artery Medtronic 01/03/2025 SG-64 / / [id number] Procedures Procedure Name Priority Date/Time Associated Diagnosis Comments VITAMIN D 25 (DEFICIENCY) Routine 01/31/2025 10:39 AM CDT Vitamin D deficiency LIPID PANEL W REFLEX MEASURED LDL Routine 01/31/2025 10:39 AM CDT Hyperlipidemia, unspecified hyperlipidemia type BASIC METABOLIC PANEL Routine 01/31/2025 10:39 AM CDT Benign essential HTN CTA ABDOMEN PELVIS - CV DUAL READ Routine 12/20/2024 11:59 AM CDT Infrarenal abdominal aortic aneurysm (AAA) without rupture CTA ABDOMEN PELVIS - RAD DUAL READ Routine 12/20/2024 11:59 AM CDT Infrarenal abdominal aortic aneurysm (AAA) without rupture XR DXA BONE DENSITY 2 SITES AXIAL Routine 07/02/2021 1:35 PM SOFTBALL COACH Post-menopausal from Last 3 Months or Most Recently Relevant to Health Maintenance Results * (ABNORMAL) LIPID PANEL W REFLEX MEASURED LDL (01/31/2025 10:39 AM CDT) CHOLESTEROL, TOTAL 191 <200 mg/dL 02/01/2025 4:59 AM CDT [facility] TRIGLYCERIDES 70 <150 mg/dL 02/01/2025 4:59 AM CDT [facility] HDL CHOLESTEROL 62 > OR = 50 mg/dL 02/01/2025 4:59 AM CDT [facility] NON HDL CHOLESTEROL 129 <130 mg/dL (calc) 02/01/2025 4:59 AM [employer] [facility] Comment: For patients with diabetes plus 1 major ASCVD risk factor, treating to a non-HDL-C goal of <100 mg/dL (LDL-C of <70 mg/dL) is considered a therapeutic option. CHOL/HDLC RATIO 3.1 <5.0 (calc) 02/01/2025 4:59 AM CDT [facility] LDL-CHOLESTEROL 113(H) mg/dL (calc) 02/01/2025 4:59 AM [employer] [facility] Comment: Reference range: <100 Desirable range <100 mg/dL for primary prevention; <70 mg/dL for patients with CHD or diabetic patients with > or = 2 CHD risk factors. LDL-C is now calculated using the Jovany-El calculation, which is a validated novel method providing better accuracy than the Friedewald equation in the estimation of LDL-C. Jovany MELO et al. ABRAN. 2013;310(19): 9704-2736 (http://education.Backtrace I/O.Blogic/faq/UHC762) Blood BLOOD SPECIMEN / Unknown [facility] / Unknown 01/31/2025 10:39 AM CDT 01/31/2025 10:41 AM CDT us Mayco Purvis MD CHEMISTRY Final Result Performing Organization Address [facility] [address]/[place] Co de Phone Number [facility] [address] [place] [address], [place] [phone] * (ABNORMAL) VITAMIN D 25 (DEFICIENCY) (01/31/2025 10:39 AM CDT) VITAMIN D,25-OH,TOTAL,IA 16(L) 30 - 100 ng/mL 02/01/2025 4:54 AM CDT [facility] Comment: Vitamin D Status 25-OH Vitamin D: Deficiency: <20 ng/mL Insufficiency: 20 - 29 ng/mL Optimal: > or = 30 ng/mL For 25-OH Vitamin D testing on patients on D2-supplementation and patients for whom quantitation of D2 and D3 fractions is required, the QuestAssureD(TM) 25-OH VIT D, (D2,D3), LC/MS/MS is recommended: order code 88462 (patients >2yrs). See Note 1 Note 1 For additional information, please refer to http://education.[facility]/faq/MTT287 (This link is being provided for informational/ educational purposes only.) Blood BLOOD SPECIMEN / Unknown [facility] / Unknown 01/31/2025 10:39 AM CDT 01/31/2025 10:41 AM CDT Mayco Purvis MD SEND OUTS Final Result Performing Organization Address City/[facility] [address]/ZIP Co de Phone Number [facility] [address] [place] [address], [place] [phone] * BASIC METABOLIC PANEL (01/31/2025 10:39 AM CDT) SODIUM 140 135 - 146 mmol/L 02/01/2025 4:59 AM CDT [facility] POTASSIUM 4.3 3.5 - 5.3 mmol/L 02/01/2025 4:59 AM CDT [facility] CARBON DIOXIDE 25 20 - 32 mmol/L 02/01/2025 4:59 AM CDT [facility] GLUCOSE 99 65 - 99 mg/dL 02/01/2025 4:59 AM CDT [facility] Comment: Fasting reference interval CALCIUM 10.0 8.6 - 10.4 mg/dL 02/01/2025 4:59 AM CDT [facility] CREATININE 0.73 0.60 - 0.95 mg/dL 02/01/2025 4:59 AM CDT [facility] BUN/CREATININE RATIO SEE NOTE: 6 - 22 (calc) 02/01/2025 4:59 AM CDT [facility] Comment: Not Reported: BUN and Creatinine are within reference range. EGFR 81 > OR = 60 mL/min/1. 73m2 02/01/2025 4:59 AM CDT [facility] UREA NITROGEN (BUN) 16 7 - 25 mg/dL 02/01/2025 4:59 AM CDT [facility] ELECTROLYTE BALANCE 10 7 - 17 mmol/L (calc) 02/01/2025 4:59 AM CDT [facility] CHLORIDE 105 98 - 110 mmol/L 02/01/2025 4:59 AM CDT [facility] Blood BLOOD SPECIMEN / Unknown [facility] / Unknown 01/31/2025 10:39 AM CDT 01/31/2025 10:41 AM CDT us Mayco Purvis MD CHEMISTRY Final Result [facility] [place] [address] [address] [place] [address], * CTA ABDOMEN PELVIS - CV DUAL READ (12/20/2024 11:59 AM CDT) Anatomical Region Laterality Modality Abdomen, Pelvis Computed Tomogra phy Impressions 12/20/2024 2:41 PM CDT See separate radiology report for non-cardiac findings. Well-seated endovascular stent graft in the infrarenal abdominal aorta with patent limbs into the common iliac arteries bilaterally. There is moderate nonobstructive thrombus within the proximal portion of the stent graft. The residual aneurysmal sac has a maximal diameter of 47 x 55 mm. There is evidence of a small type II endoleak in the mid portion of the graft. Compared to the patient's previous CT scan from 10/2023, these findings are unchanged. FINDINGS: ABDOMINAL AORTA: The supraceliac abdominal aorta is mildly dilated, measuring 33 x 34 mm. There is moderate atherosclerosis present. The celiac trunk is widely patent. The SMA is widely patent. The right renal artery is patent. The left renal artery is patent. There is an endovascular stent graft present, placed just below the renal arteries. The stent graft has moderate thrombus in its proximal segment which is nonobstructive. The limbs of the stent graft extend to the common iliac arteries bilaterally. The stent graft appears well seated. The residual aneurysmal sac has a maximum diameter of 47 x 55 mm. There is evidence of a small type II endoleak in the mid portion of the graft. RIGHT SIDE: The limb into the right common iliac artery is widely patent. There is mild nonobstructive atheroma in the right limb. The right internal iliac artery has severe calcified atherosclerosis but is patent. The right external iliac artery also has severe calcified atherosclerosis but is patent. The right common femoral artery is patent. LEFT SIDE: The limb of the endovascular stent graft extends into the left common iliac artery and is widely patent. The left internal iliac artery has a moderate to severe stenosis in its proximal segment but is otherwise patent. The left external iliac artery has moderate calcified atherosclerosis but is patent. The left common femoral artery is patent. MD CHRISTIANO Geiger/zach Narrative 12/20/2024 2:41 PM CDT Results are automatically released to your mojio) account once available, in compliance with federal regulations. This means that you may see your results before your provider has had a chance to review them. Please allow 2-3 business days for your provider to comment on the results. THIS IS THE CARDIOLOGY REPORT OF A DUAL READ STUDY. READ THE SEPARATE RADIOLOGY REPORT FOR POTENTIAL INCIDENTAL FINDINGS. REPORTS MAY BE FINALIZED AT DIFFERENT TIMES. STUDY: CT ANGIOGRAM OF THE ABDOMEN AND PELVIS, 12/20/2024 [address]ERS: A CT angiogram of the abdomen and pelvis was performed using a Siemens SOMATOM Force [address] scanner with 100 cc of Omnipaque-350 contrast and a FLASH scan protocol with a DLP of 489. INDICATIONS: Abdominal aortic aneurysm. CLINICAL HISTORY: Patient is an 84-year-old female with history of an abdominal aortic aneurysm for which she underwent endovascular repair with a stent graft. CT scan performed for routine followup. SCAN QUALITY: The scan is of good quality and is adequate for interpretation. us Calvin Casiano MD CT Final Result * CTA ABDOMEN PELVIS - RAD DUAL READ (12/20/2024 11:59 AM CDT) Anatomical Region Laterality Modality Abdomen, Pelvis Computed Tomogra phy Impressions 12/22/2024 1:27 PM CDT 1. See separate cardiology report for cardiac findings. 2. No acute abdominopelvic process identified. Please note that all CT scans at this facility use dose modulation, iterative reconstruction and/or weight-based dosing when appropriate to reduce radiation dose to as low as reasonably achievable. Andrés Brady M.D. Diagnostic/Nuclear Medicine Radiologist [employer] [email or web address] / Narrative 12/22/2024 1:27 PM CDT For Patients: As a result of the 21st Century Cures Act, medical imaging exams and procedure reports are released immediately into your electronic medical record. You may view this report before your referring provider. If you have questions, please contact your health care provider. THIS IS THE RADIOLOGY OVER READ REPORT OF A DUAL READ STUDY. READ THE SEPARATE CARDIOLOGY REPORT FOR CARDIOVASCULAR FINDINGS. REPORTS MAY BE FINALIZED AT DIFFERENT TIMES. COMPARISON: 11/24/2023. 12/16/2020. TECHNIQUE: Please see cardiology report for technical information. CT angiogram of the abdomen and pelvis. This exam is being performed in conjunction with the services provided by the [facility] ([facility]). INDICATION: Cardiac over-read. 84-year-old female. Infrarenal abdominal aortic aneurysm without rupture. Endovascular stent graft repair. FINDINGS: Bibasilar curvilinear fibrosis or atelectasis right slightly more so than the left. No pleural or pericardial effusions. Moderate-sized hiatal hernia. Surgically absent gallbladder. Calcified splenic granulomas. Unremarkable pancreas. The liver is within normal limits. Stable slight nodularity left adrenal gland when compared to 2020. No bowel obstruction. Descending/sigmoid diverticulosis without diverticulitis. The urinary bladder, uterus, and both adnexa are unremarkable. There is no evidence for abdominopelvic ascites or lymphadenopathy. Incidental note is made of a nonobstructive 6 mm stone in the left kidney seen previously on November 24, 2023. Degenerative changes of the lumbar spine. Calvin Casiano MD CT Final Result * (ABNORMAL) XR DXA BONE DENSITY 2 SITES AXIAL (07/02/2021 1:35 PM SOFTBALL COACH) Anatomical Region Laterality Modality Spine, HIPS, HIPL, [...] Patients: Results are automatically released to your [facility] ([employer]) account once available, in compliance with federal regulations. This means that you may see your results before your provider has had a chance to review them. Please allow 2-3 business days for your provider to comment on the results. XR DXA Bone Mineral Density (BMD) EXAM LOCATION: [facility] [address] [facility] [id number] PATIENT NAME: Jasmyn Tolentino DATE OF : [...] two scanners are made by the same spray machine operator. PROCEDURE: Dual-energy x-ray absorptiometry performed with routine [...] hip fracture: 6.6%. 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 Expl anation POLST 06/30/2022 * Full Code (Latest Code Status on File) Date Activated Date Inactivated Comments 09/24/2023 11:20 AM 09/24/2023 6:29 PM Question Answer Comments Code Status Discussion: Reviewed Preferences * Full Code Date Activated Date Inactivated Comments 01/14/2017 6:00 PM 01/27/2017 6:11 PM Question Answer Comments Code Status Discussion: Per Existing Order Care Teams Commercial Parts Professional Relationship Specialty Start Date End Date Mayco Purvis MD [address] [place] [address] PCP - General Family Practice 12/12/18 Shmuel Baca MD [address] [address] Radiology - Neuroradiology 03/31/17 Shantel Holt NP [address] [address] Nurse Practitioner 03/31/17
[2025-02-16 17:02] VITALS: BP 175/108; PULSE 82; RESP 16; TEMP 36.7; O2SAT 92; BMI 26.2
--- NOTE | 2025-02-16 17:08 | ED.GENADULT ---
HPI - General Adult General Chief complaint: Hypertension Stated complaint: High BP Time Seen by Provider: 02/16/25 17:08 History of Present Illness HPI narrative: Pt reports a few weeks ago had high blood pressure on her home BP machine of approx 150 systolic. Did acquire a new BP machine. Pt reports today she checked BP and it was 170 -something. Pt then reports she did chair yoga and then took a nap. Rechecked BP and it was still high, 177 /110. 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 84-year-old woman presenting to the emergency department with concern of high blood pressure readings. Two or 2 and half weeks ago seen primary care in did have lab drawn which she reports were normal. Denies any heart problems lung problems or kidney problems. At that visit though blood pressures were little elevated and was told to increase her losartan to total of I believe 25 mg daily. Does have a history of hemorrhagic stroke and is worried about potentiate in that again. Sounds like it was related to some venous malformation though there was a question of Marfan's in her family. After this visit at her primary care provider she was told to start measuring again her pressures at home. Today was getting pressures of just over 170 over 100. She admits is more anxious about this potential. She does not have any headache. Does have some visual disturbance more in the form of irritation associated with allergies. She does have sleep apnea but has been unable to tolerate her CPAP. Related Data Home Medications ?Medication ?Instructions ?Recorded ?Confirmed atorvastatin 40 mg tablet 40 mg PO DAILY 02/15/23 02/16/25 losartan 25 mg tablet 12.5 mg PO DAILY 02/15/23 02/16/25 omeprazole 20 mg capsule,delayed 20 mg PO DAILY 12/17/23 02/16/25 release Previous Rx's ?Medication ?Instructions ?Recorded amlodipine 2.5 mg tablet 2.5 mg PO DAILY #30 tabs 02/16/25 Allergies Allergy/AdvReac Type Severity Reaction Status Date / Time amoxicillin (From Augmentin) Allergy Unknown Verified 08/28/24 15:11 clavulanic acid (From Allergy Unknown Verified 08/28/24 15:11 Augmentin) ragweed pollen Allergy Unknown Verified 02/16/25 17:08 Sulfa (Sulfonamide Allergy Unknown Verified 08/28/24 15:11 Antibiotics) Review of Systems Status of ROS: Reports: 6 or more systems reviewed and unremarkable except as noted in History and below [facility] Social History Smoking Status: Never smoker How often do you have a drink containing alcohol: 2-3 times a week AUDIT-C Alcohol total score: 3 Non-prescribed substance use: denies use Exam Narrative: Exam Narrative: Very pleasant. NAD. Skin is warm dry. Maybe a little anxious. Little tremulous I think on initial evaluation. Breathing easily. Lungs appear clear. Heart in regular rate and rhythm. No murmur or gallop. Abdomen is soft nontender. Extremities well perfused without edema. Cranial nerves 2-12 are intact. Moving all extremities without difficulty, fluidly. Pupils are 3 mm and equal. Const: Vital Signs, click to edit/add: Vital Signs - 24 hr 02/16/25 17:02 Temperature 98.1 F Pulse Rate [Pulse Oximeter] 82 Respiratory Rate 16 Blood Pressure [Ri ght Upper Arm] 175/108 H Pulse Oximetry 92 Oxygen Delivery Me thod Room Air Documenting provider has reviewed patient's vital signs: yes Course Vital Signs Vital signs: Initial Vital Signs Temperature 98.1 F 02/16/25 17:02 Temperature Source Temporal Artery Scan 02/16/25 17:02 Pulse Rate 82 02/16/25 17:02 Respiratory Rate 16 02/16/25 17:02 Blood Pressure 175/108 H 02/16/25 17:02 Blood Pressure Mean 130 H 02/16/25 17:02 Blood Pressure Position Sitting 02/16/25 17:02 Pulse Oximetry 92 02/16/25 17:02 Oxygen Delivery Method Room Air 02/16/25 17:02 Vital Signs Temperature 98.1 F 02/16/25 17:02 Pulse Rate 82 02/16/25 17:02 Respiratory Rate 16 02/16/25 17:02 Blood Pressure 175/108 H 02/16/25 17:02 Pulse Oximetry 92 02/16/25 17:02 Oxygen Delivery Method Room Air 02/16/25 17:02 Temperature 98.1 F 02/16/25 17:02 Pulse Rate 82 02/16/25 17:02 Respiratory Rate 16 02/16/25 17:02 Blood Pressure 151/102 H 02/16/25 18:15 Pulse Oximetry 91 02/16/25 18:19 Oxygen Delivery Method Room Air 02/16/25 18:19 Medications Administered Medications: Discontinued Medications Generic Name Dose Route Start Last Admin Trade Name Rickey PRN Reason Stop Dose Admin Amlodipine Besylate 2.5 mg 02/16/25 18:59 02/16/25 19:35 Amlodipine 5 Mg Tablet PO 02/16/25 19:00 2.5 mg ONCE ONE Administration Medical Decision Making MDM Narrative Medical decision making narrative: I think has become somewhat anxious about this blood pressure. I would like to monitor for a time. I do not think this likely represents hypertensive emergency. She reports having just had labs drawn which were normal. Will try to obtain copies. Noting oxygen saturations had been depressed in the low 90s through most of her did proceed with chest x-ray. She has not been feeling short of breath. Is usually in the mid 90s. INDICATION: Hypoxia, cough TECHNIQUE: Chest 2 views. COMPARISON: 9152 FINDINGS: Cardiovascular and mediastinum: Heart size is normal. Unremarkable mediastinum. Lungs and pleural spaces: Similar mild rightward tracheal deviation. Bibasal hazy reticular opacities, somewhat increased on the right compared to prior chest radiograph. No pleural effusion. No pneumothorax. Bones and soft tissues: No significant findings. IMPRESSION: Bibasal hazy reticular opacities, somewhat increased on the right compared to prior chest radiograph, indeterminate for edema or infection. Dictated by Kristie Rhodes MD @ 02/16/2025 6:50:56 PM Does not a diagnosis heart failure that I am aware of to be contributing to these findings. I suspect could benefit from another antihypertensive. Considering both systolic and diastolic been moderately elevated here did give a dose of amlodipine. I think can continue this outpatient. Would follow up closely though for recheck and possible further cardiac evaluation. See patient discharge plan for further discussion We are starting you on rather low-dose amlodipine for your blood pressure. Continue with other medications as prescribed. Please follow-up in about a week to 10 days with your primary care provider for blood pressure and related. Should be able to access these records including chest x-ray. Your chemistries including renal function on January 31 looked quite good. Recheck blood pressure and pulse oximetry the latter which was little bit low here. Return for increasing chest pain or shortness of breath or severe headache. Medical Records Medical records reviewed: Yes I reviewed the patient's medical records Discharge Plan Discharge Clinical Impression: Hypertension Patient Disposition: Home, Self-Care Condition: Improved Additional Instructions: We are starting you on rather low-dose amlodipine for your blood pressure. Continue with other medications as prescribed. Please follow-up in about a week to 10 days with your primary care provider for blood pressure and related. Should be able to access these records including chest x-ray. Your chemistries including renal function on January 31 looked quite good. Recheck blood pressure and pulse oximetry the latter which was little bit low here. Return for increasing chest pain or shortness of breath or severe headache. Prescriptions: New amlodipine 2.5 mg tablet 2.5 mg PO DAILY Qty: 30 0RF No Action losartan 25 mg tablet 12.5 mg PO DAILY atorvastatin 40 mg tablet 40 mg PO DAILY omeprazole 20 mg capsule,delayed release(DR/EC) 20 mg PO DAILY Follow Up/Referrals: Mayco Purvis MD [Primary Care Provider, Family Practice] Stand Alone Forms: [employer] Info Instructions
[2025-02-16 17:36] VITALS: BP 182/107
[2025-02-16 18:03] VITALS: BP 164/104
[2025-02-16 18:15] VITALS: BP 151/102
[2025-02-16 18:19] VITALS: O2SAT 91
--- NOTE | 2025-02-16 18:23 | CRLHL7_ITS ---
For Patients: As a result of the Cures Act, medical imaging exams and procedure reports are released immediately into your electronic medical record. You may view this report before your referring provider. If you have questions, please contact your health care provider. INDICATION: Hypoxia, cough TECHNIQUE: Chest 2 views. COMPARISON: 9152 FINDINGS: Cardiovascular and mediastinum: Heart size is normal. Unremarkable mediastinum. Lungs and pleural spaces: Similar mild rightward tracheal deviation. Bibasal hazy reticular opacities, somewhat increased on the right compared to prior chest radiograph. No pleural effusion. No pneumothorax. Bones and soft tissues: No significant findings. IMPRESSION: Bibasal hazy reticular opacities, somewhat increased on the right compared to prior chest radiograph, indeterminate for edema or infection. Dictated by Kristie Rhodes MD @ 02/16/2025 6:50:56 PM (Electronically Signed)
[2025-02-16] MEDS: AMLODIPINE 5 MG TABLET 2.5 MG PO (19:35)
== END 2025-02-16 19:37 | disposition home or self-care (01) ==
PROVIDERS: Emergency Provider Family Medicine; PCP Family Medicine
DX: I10 Essential (primary) hypertension (principal)
CPT/HCPCS: 71046; 99283; 99284; A9270